=== PATIENT | female | born 1940 | race Caucasian/White ===

== ENCOUNTER → 2024-04-10 14:54 | Outpatient (REF) | payer MEDICARE, BC, SELFPAY | LOC: HWRAD 14:54 | PROVIDERS: ATTENDING PHYSICIAN Physician Assistant Medical | DX: R41.82 Altered mental status, unspecified (principal); R51.9 Headache, unspecified | CPT/HCPCS: 70450 ==

== ENCOUNTER 2024-04-29 17:37 | Observation (INO) | payer MEDICARE, BC, SELFPAY ==
[2024-04-29] VITALS (8 sets, daily range): BP systolic 88–136; BP diastolic 52–78; BMI 18.1
--- NOTE | 2024-04-29 12:42 | ED.GENMED ---
History of Present Illness
General
Chief Complaint: Back Pain
Source: patient
Exam Limitations: none
Time Seen by Provider: 04/29/24 12:09
History of Present Illness
History of Present Illness:
83-year-old female presents with family from home where she lives independently with her . Her has a history of Parkinson's and has been falling frequently. He fell on top of her 5 days ago. She was found to have right sided pelvic
fractures. She is fairly healthy and not anticoagulated. Before the fall did not need any assist devices to ambulate. She has been trying to use a walker however the pain today was too severe. She is unable to safely ambulate at home secondary
to her pelvic fractures and pain. No chest pain. No other complaints at this time
Past History
Past History
ED Past Medical History: None
ED Past Surgical History: Appendectomy
Social History
Personal:
Phy Exam
Physical Exam
Physical Exam:
General: Well-appearing female no acute respiratory distress
HEENT: Normocephalic atraumatic healing contusion noted to right side of jaw
Heart: Regular rate and rhythm no murmurs
Lungs: Clear no wheeze/abdomen is soft nontender nondistended no guarding or rebound
Musculoskeletal exam: No deformities noted to the lower extremities. There is pain with passive motion of the right hip.
Extremities: No cyanosis
Neurologic exam: Alert and oriented x 3 no facial asymmetry good strength to the upper and lower extremity
Course
Orders/Labs/Results
Orders:
Orders
04/29/24 12:33
CR Hip - RT w/wo Pel 2-3 Vw* Urgent
Comment:
Reason For Exam: fall, pain
Include a pelvis x-ray?: Yes
04/29/24 12:39
Complete Blood Count/With Diff Urgent
Comprehensive Metabolic Panel Urgent
04/29/24 13:24
PT Consult [Pt Eval And Treat] Urgent
Activity Level: Ambulate
04/29/24 13:41
Case Management Consult ONCE
Case Management Consult: Discharge Planning
Abnormal Lab Results
04/29/24
12:39
RBC 3.36 L 10^6/uL
(4.20-5.40)
Hgb 10.3 L g/dL
(12.0-16.0)
Hct 29.1 L %
(37.0-47.0)
Absolute Neuts (auto) 6.8 H 10^3/uL
(1.4-6.5)
Absolute Lymphs (auto) 0.9 L 10^3/uL
(1.2-3.4)
Absolute Monos (auto) 0.7 H 10^3/uL
(0.1-0.6)
Neutrophils % 79.1 H %
(42.2-75.2)
Lymphocytes % 10.9 L %
(20.5-51.1)
BUN 41 H mg/dl
(7-17)
Creatinine 1.1 H mg/dL
(0.6-1.0)
AST 43 H U/L
(14-36)
04/29/24 12:39
04/29/24 12:39
Vital Signs
Initial and Last Documented VS:
Initial Vital Signs
Temp Pulse Resp BP Pulse Ox
97.5 F 60 20 113/61 99
04/29/24 11:01 04/29/24 11:01 04/29/24 11:01 04/29/24 11:01 04/29/24 11:01
Last Documented Vital Signs
Temp Pulse Resp BP Pulse Ox
97.5 F 62 16 124/74 99
04/29/24 11:01 04/29/24 16:00 04/29/24 16:00 04/29/24 16:00 04/29/24 16:00
MDM/Problems Addressed
Differential Diagnosis Includes:
Patient with alleged right sided pelvic fracture secondary to fall her sustained 5 days ago. She has been unable to ambulate today secondary to the pain. She lives independently otherwise. Family was interested in potential placement.
X-rays pending of the right hip and pelvis labs pending. Case management notified
*Critical Care Note
Total Time (30-74mins, 75-104mins- exclusive of procedures): Not Applicable
Update Note
Update Note:
X-rays right hip demonstrate a periprosthetic fracture of the right proximal femur without obvious pelvic fracture. Discussed these findings with orthopedics who recommended partial weightbearing and likely nonoperative treatment. Patient
evaluated by physical therapy and case management. She is unsafe for discharge. She is unable to be placed from the emergency room. Will admit for further evaluation
ED Attending Note
-
Portions of this chart may have been created with voice recognition software.� Occasional wrong word or��sound alike� substitutions may have occurred due to the inherent limitations of voice recognition software.
Discharge Plan
Departure
Patient Disposition: Admit
Date of Disposition: 04/29/24
Time of Disposition: 16:19
Admit to: Med/Surg
Presentation/result/management discussed w/ accepting MD/DO: Hospitalist
Discharge Problem:
Periprosthetic fracture of hip
Referrals:
Colin Kumar PA-C [Family Provider] -
Interventions
Interventions:
*Risk Screen - Suicide Last Done: 04/29/24 11:54
*General Assessment Last Done: 04/29/24 11:54
*Neglect/Abuse Screening Last Done: 04/29/24 11:54
ED- Fall Risk Assessment Last Done: 04/29/24 11:54
ED-Musculoskeletal Assessment Last Done: 04/29/24 11:54
Discharge Date and Time
Print Language: SLOVENIAN
[2024-04-29 12:49] LABS: % Basophils 0.2 % (0-2); % Eosinophils 0.6 % (0-6); % Immature Granulocytes 0.5 % (0-0.5); % Lymphocytes 10.9 % (20.5-51.1); % Monocytes 8.7 % (1.7-9.3); % Neutrophils 79.1 % (42.2-75.2); Absolute Eosinophils 0.1 10^3/uL (0-0.7); Absolute Lymphocytes 0.9 10^3/uL (1.2-3.4); Absolute Monocytes 0.7 10^3/uL (0.1-0.6); Absolute Neutrophils 6.8 10^3/uL (1.4-6.5); Hematocrit 29.1 % (37.0-47.0); Hemoglobin 10.3 g/dL (12.0-16.0); Mean Corp Hgb Conc. 35.4 g/dL (33.0-37.0); Mean Corpuscular Hgb 30.7 pg (27.0-31.0); Mean Corpuscular Volume 86.6 fL (81.0-99.0); Mean Platelet Volume 9.8 fL (7.4-10.4); Nucleated Red Blood Cells % 0 %; Platelet Count 198 10^3/uL (130-400); Red Blood Cell Count 3.36 10^6/uL (4.20-5.40); Red Cell Dist. Width 12.2 % (11.5-14.5); White Blood Cell Count 8.6 10^3/uL (4.8-10.8)
[2024-04-29 13:14] LABS: ALT (SGPT) 22 U/L (0-35); AST (SGOT) 43 U/L (14-36); Albumin 3.7 g/dl (3.5-5.0); Alkaline Phosphatase 75 U/L (38-126); Blood Urea Nitrogen 41 mg/dl (7-17); Calcium 9.3 mg/dl (8.4-10.2); Carbon Dioxide 24 mmol/L (22-30); Chloride 103 mmol/L (98-107); Glucose 91 mg/dl (70-99); Potassium 4.6 mmol/L (3.5-5.1); Sodium 136 mmol/L (135-145); Total Bilirubin 1.3 mg/dl (0.2-1.3); Total Protein 6.4 g/dl (6.3-8.2); eGFR 50.17
--- NOTE | 2024-04-29 14:29 | CM ---
Addendum entered by Aida Melchor RN 04/29/24 18:35:
[facility] given.
Addendum entered by Aida Melchor RN 04/29/24 15:32:
CM spoke with son Jonathan. He is agreeable to placement. CM discussed options. Referrals sent to [facility]. CM is pending PT evaluations.
Jonathan stated that he plans to transition patient from her apartment to [facility] assisted living on May 14.
PLAN: SNF
Original Note:
CM was consulted for placement. CM met with patient and she stated that she would be agreeable to placement. Patient could not offer SNF choices and requested that I speak to her son Jonathan
--- NOTE | 2024-04-29 15:36 | CON.ORTHO ---
Consultation - Orthopedics
History
HPI: 83-year-old female history of bilateral total hip arthroplasty presented to the emergency department complaints of right hip pain. She was subsequently mated to the hospital service after being diagnosed with a right hip periprosthetic femur
fracture. Orthopedics was consulted. Patient reports that she had total hip arthroplasty surgery performed years ago in [place]. She reports that 5 days ago her fell on her. He has Parkinson's and she helps to care for him at
home. Since that time she has been continuing to ambulate but with pain. She does report that she been using a walker for ambulatory assistance at baseline over the last several months due to ambulatory dysfunction. Today patient reports pain
well localized to the right groin. Pain is made worse with rotation of the hip and with attempted ambulation.
Allergies / Home Medications
Past medical history: None reported
Past surgical history: Hip arthroplasty, appendectomy
Social history: Lives at home with who has Parkinson's,
Family history: Not pertinent
Allergy/AdvReac Type Severity Reaction Status Date / Time
egg yolk Allergy Unknown Verified 04/29/24 11:01
Vital Signs / Lab Results
Temp Pulse Resp BP Pulse Ox
97.5 F 60 16 132/74 99
04/29/24 11:01 04/29/24 11:01 04/29/24 14:00 04/29/24 13:22 04/29/24 11:01
04/29/24 12:39
04/29/24 12:39
10 point review systems reviewed and negative unless otherwise stated
General: Pleasant, no acute distress, mildly confused
Musculoskeletal right lower extremity
Well-healed surgical incisions
Mild lateral based hip pain with passive internal ex rotation of hip
No pain with passive range of motion of knee
No palpable knee effusion
Mild tenderness palpation over groin
Mild to moderate tenderness palpation over lateral trochanteric flare
Positive EHL, FHL, ankle dorsiflexion, plantarflexion
Sensation grossly tact to light touch in all dispositions distally
No other areas of bony tenderness palpation crepitation of long bones or joints of tissue examination
Diagnostic studies
X-rays right hip independently viewed by myself. There is evidence on my read of a nondisplaced periprosthetic greater trochanter fracture. There is no gross subsidence of the implant however there is no previous radiographs to confirm previous
position
Assessment / Plan
83-year-old female history of right total hip arthroplasty status post fall with [place] A G periprosthetic right femur fracture. I do long detailed discussion with the patient regarding diagnosis and treatment options. Typically disease treated
nonoperatively there is some mention of potential fracture propagation more distally although I do not really see this on my read. Would recommend protected weightbearing about 50% partial weightbearing with the use of a walker. Would like to see
patient back in 2 weeks for repeat evaluation with repeat radiographs to assess for any interval displacement or interval subsidence. I did explain to her that if the fracture is more substantial and there is gross subsidence of the implant or if
there is any interval subsidence, she would need revision hip surgery and would refer her to trained hip arthroplasty specialist. Hopefully this is not the case.
Protected weightbearing, 50% partial weightbearing with walker right lower extremity
PT OT
Pain control
Medical management per primary team
I recommend DVT prophylaxis for 28 days. 81 mg aspirin twice daily should suffice.
Planned outpatient follow-up myself outpatient in 2 to 3 weeks repeat radiographs.
--- NOTE | 2024-04-29 16:32 | PHANOTE ---
Med Rec Note:
When interviewing pt about medications, she states she can't remember them, prompted pt with medications filled recently per Dr Levin. Oxybutynin ER 5mg Daily (02/03/24 for 90 days), Lansoprazole 30mg Daily (02/25/24 for 90 days), Cyclobenzaprine
5mg HSPRN (04/26/24 for 10 days), Methylprednisolone 4mg Dospak (04/26/24 for 6 days). Pt states she wasn't taking the Flexeril or MedrolPak, but when asked about the last time she took her medications, pt stated that she is not a pill taker.
--- NOTE | 2024-04-29 16:47 | HPS.HSE ---
Family Physician
-
Family Physician: ANGELES BRITTON PA-C
Chief Complaint
-
right hip pain
History of Present Illness
83-year-old female past medical history of bilateral hip arthroplasty, presenting with right hip pain her has a history of Parkinson's and has been falling frequently. He fell on top of her 5 days ago. Before the fall she did not need any
assistance tabulate. She has been trying to use walker however pain was too severe. She was unable to ambulate at home. She denies any pain currently unless she tries to walk. Denies chest pain.
Patient denies smoking or alcohol use.
Medical History
Past Medical History
Past Medical History: Reports Other (bilateral hip arthroplasty,)
Past Surgical History: Reports Orthopedic
Social History
Tobacco: Non-smoker
Alcohol: None
Drug: None
Family History
Family History: Not pertinent
Allergies / Home Medications
Allergies reflects when Allergies were last updated in [facility].
Home Medications with original date entered in [employer]
Allergy/Medication List:
Allergies
Allergy/AdvReac Type Severity Reaction Status Date / Time
egg yolk Allergy Unknown Verified 04/29/24 11:01
Home Medications
No Meds [No Current Medications] 04/29/24
Review of Systems
-
History Source: Patient
A 12 point ROS was completed and negative except as noted: Yes
Constitutional: Reports No Symptoms
EENT: Reports No Symptoms
Respiratory: Reports No Symptoms
Cardiac: Reports No Symptoms
Abdomen/GI: Reports No Symptoms
: Reports No Symptoms
Musculoskeletal: Reports See HPI
Skin: Reports No Symptoms
Neurological: Reports No Symptoms
Endocrine: Reports No Symptoms
Hematologic/Lymphatic: Reports No Symptoms
Psych: Reports No Symptoms
Physical Exam
Vital Signs
Vital Signs
Temp Pulse Resp BP Pulse Ox
97.5 F 62 16 124/74 99
04/29/24 11:01 04/29/24 16:00 04/29/24 16:00 04/29/24 16:00 04/29/24 16:00
Physical Exam
General: Well Developed, Well Nourished and No Apparent Distress
HEENT: NormoCephalic, Moist mucous membranes and Atraumatic
Respiratory: Clear
Cardiac: S1/S2 and Regular Rhythm; No Murmur or Rub
GI: Soft, Non Tender, Non Distended and Normal Bowel Sounds; No Organomegaly
Rectal: Deferred by Provider
Musculoskeletal: No Clubbing, No Cyanosis and No Edema
Skin: No Rash
Neuro: Nonfocal/grossly intact
Laboratory Results
-
04/29/24 12:39
04/29/24 12:39
Laboratory Results
Total Bilirubin 1.3 mg/dl (0.2-1.3) 04/29/24 12:39
AST 43 U/L (14-36) H 04/29/24 12:39
ALT 22 U/L (0-35) 04/29/24 12:39
Alkaline Phosphatase 75 U/L (38-126) 04/29/24 12:39
Data Reviewed
-
Lab Data: Labs Reviewed by me
Old Records: Reviewed
Impression/Plan
-
IMPRESSION:
PLAN:
# Nondisplaced periprosthetic fracture of right proximal femur
# History of bilateral hip arthroplasty
-Ortho consulted and recommended protected partial weightbearing with walker as well as aspirin for DVT prophylaxis for 28 days and outpatient follow-up with orthopedics
-PT/OT
-Tylenol, ibuprofen, tramadol as needed for
-Seen by PT and case management cannot be placed today
Presumably chronic anemia
-Hemoglobin 10.3
Full code
DVT prophylaxis-aspirin
Regular diet
--- NOTE | 2024-04-29 21:18 | PTCARENOTE ---
Pt arrived onto floor @2117. Pt AAOx3 and able to walk into room w/ assistance. Pt w/ no complaints of SOB at this time. Pt oriented to room and call red; will continue to monitor.
[2024-04-29] MEDS: TYLENOL 650 MG PO (21:20)
[2024-04-29] MEDS: ULTRAM 50 MG PO (23:45)
[2024-04-30 07:09] LABS: % Basophils 0.6 % (0-2); % Eosinophils 2.5 % (0-6); % Immature Granulocytes 0.4 % (0-0.5); % Monocytes 11.3 % (1.7-9.3); % Neutrophils 66.2 % (42.2-75.2); Absolute Eosinophils 0.2 10^3/uL (0-0.7); Absolute Lymphocytes 1.3 10^3/uL (1.2-3.4); Absolute Monocytes 0.8 10^3/uL (0.1-0.6); Absolute Neutrophils 4.6 10^3/uL (1.4-6.5); Hematocrit 29.1 % (37.0-47.0); Hemoglobin 10.2 g/dL (12.0-16.0); Mean Corp Hgb Conc. 35.1 g/dL (33.0-37.0); Mean Corpuscular Hgb 31.5 pg (27.0-31.0); Mean Corpuscular Volume 89.8 fL (81.0-99.0); Mean Platelet Volume 10.4 fL (7.4-10.4); Nucleated Red Blood Cells % 0 %; Platelet Count 203 10^3/uL (130-400); Red Blood Cell Count 3.24 10^6/uL (4.20-5.40); White Blood Cell Count 6.9 10^3/uL (4.8-10.8)
[2024-04-30 07:42] LABS: ALT (SGPT) 20 U/L (0-35); AST (SGOT) 32 U/L (14-36); Albumin 3.4 g/dl (3.5-5.0); Alkaline Phosphatase 69 U/L (38-126); Blood Urea Nitrogen 39 mg/dl (7-17); Calcium 8.7 mg/dl (8.4-10.2); Carbon Dioxide 23 mmol/L (22-30); Chloride 103 mmol/L (98-107); Estimated Creatinine Clearance 35 ml/min; Glucose 86 mg/dl (70-99); Potassium 4.2 mmol/L (3.5-5.1); Sodium 135 mmol/L (135-145); Total Bilirubin 0.9 mg/dl (0.2-1.3); Total Protein 5.9 g/dl (6.3-8.2); eGFR 56.25
[2024-04-30] MEDS: LOW STRENGTH ASPIRIN 81 MG PO (08:05)
[2024-04-30] MEDS: ULTRAM 50 MG PO ×2 (08:07→15:51)
[2024-04-30 08:14] VITALS: BP 118/58
--- NOTE | 2024-04-30 08:41 | W.PN.HOSP.TC ---
Addendum entered and electronically signed by Nba Sheppard MD 04/30/24 09:40:
I saw and evaluated the patient. I reviewed the resident�s note and agree with findings and plan as documented in the resident�s note.
Pt without acute complaints.
Gen: NAD, Awake and alert
Eyes: EOMI, PERRLA, no scleral icterus.
ENMT: R chin ecchymosis
Neck: supple.
CV: RRR, +S1/S2, no m/r/g.
Resp: CTAB, no rales, wheezes, or rhonchi.
Abd: +BS, soft, NT, ND
Skin: No rashes.
Neuro: CN 2-12 intact, non-focal.
Psych: Normal mood and affect.
CT brain: There are no acute intracranial abnormalities. There is moderate diffuse cortical atrophy with moderate nonspecific white matter changes as described above.
R hip Xray: There is cortical disruption at the lateral aspect of the junction of the greater trochanter and the proximal femoral metaphysis suggesting nondisplaced acute fracture extending into the femoral component of the prosthesis.
Right hip periprosthetic fracture:
-As per Ortho, observe for the next 2-3 weeks, 50% partial weightbearing with walker to the right lower extremity, ASA 81mg BID x 28 days
-No indication for further hospitalization at this time and the patient is medically cleared for discharge, case management aware
Original Note:
Today's Communication/Plan
-
Plan discharge after orthopedic and PT consult
Assessment / Plan
Assessment / Plan
IMPRESSION
An 83-year-old female with past medical history of bilateral shoulder and bilateral hip replacement, presented with a history of fall resulting in right sided acute nondisplaced periprosthetic hip fracture. She complains of stiffness in her hips
more on the left as compared to right. She says her pain is well-controlled, needs some help to get up but is able to ambulate with the help of walker.
ASSESSMENT AND PLAN
Right-sided periprosthetic hip fracture
Patient presented with a fall, resulting in difficulty in ambulating
CT head shows no intracranial bleed
X-ray of right hip showed acute periprosthetic nondisplaced hip fracture
Ortho consult appreciated--- would like to observe for next 2 weeks before looking into surgery options
PT evaluation
Needs physical therapy to help with mobility
OTHER
History of bilateral hip and shoulder replacement
Currently taking no medications at home
Full code
DVT prophylaxis-aspirin
Regular diet
Anticipated Discharge: Within 24 hours
Subjective/Interval History
-
Date of Service: April 30, 2024
An 83-year-old female, sitting comfortably in her bed, conversant, says pain is well-controlled, able to move her legs, complains of some stiffness in her left hip.
Objective Data
-
Labs:
Laboratory Results
04/30/24
05:58
WBC 6.9
Hgb 10.2 L
Hct 29.1 L
Plt Count 203
Sodium 135
Potassium 4.2
Chloride 103
Carbon Dioxide 23
BUN 39 H
Creatinine 1.0
Glucose 86
Calcium 8.7
Total Bilirubin 0.9
AST 32
ALT 20
Alkaline Phosphatase 69
Vital Signs:
Vital Signs
Temp Pulse Resp BP Pulse Ox
97.3 F 52 16 118/58 100
04/30/24 08:14 04/30/24 08:14 04/30/24 08:14 04/30/24 08:14 04/30/24 08:14
I&O
04/29/24 04/30/24 05/01/24
06:59 06:59 06:59
Intake Total 240 / 240
Balance 240 / 240
Review of Systems
-
All other systems: Reviewed and negative
Physical Exam
-
General: Well Developed, Well Nourished, No Apparent Distress, Comfortable and Conversant
HEENT: Anicteric and PERRLA
Respiratory: Clear to Auscultation
Cardiac: Regular Rhythm and S1/S2
GI: Soft, Nontender, Nondistended and Normal Bowel Sounds
Genito-urinary: No Costovertebral Tender
Musculoskeletal: No Clubbing, No Cyanosis and No Edema
Skin: Warm and Dry
Neuro: Awake, Alert and Oriented
Hematologic / Lymphatic: No Lymphadenopathy
Psych: Calm
--- NOTE | 2024-04-30 08:57 | W.DCSUMMARY ---
Addendum entered and electronically signed by Nba Sheppard MD 04/30/24 11:20:
Read, reviewed, and agree. See same day progress note for additional details.
Original Note:
Discharge Summary
Discharge Data
Date of Admission: 04/29/24
Date of Discharge: 04/30/24
-
Pending Results: No
Hospital Course
Discharging Physician : Dr. Nba Sheppard, Dr. Tylor Whitmore
Disposition : snf/[facility] facility
Primary care physician : Colin Kumar PA-C
Principal Discharge diagnosis : right periprosthetic fracture
Chronic Discharge diagnosis : History of bilateral hip and bilateral shoulder replacement
Hospital Course :
Patient is an 83-year-old female who presented with a history of fall, CT scan of head showed no evidence of bleed, hip x-ray showed right sided acute displaced periprosthetic hip fracture. Ortho was consulted who suggested to observe for the next
2 to 3 weeks, with 50% partial weightbearing with walker to the right lower extremity. They also advised anticoagulation with aspirin 81 mg twice a day for 28 days.
Patient discharged to a intermediate facility to assist with ambulatory function.
Important imaging findings :
Xray Hip - RT
FINDINGS:
3 radiographs of the pelvis and right hip were obtained.
There are old healed fractures of both ischial tuberosities and both superior pubic rami.
There are bilateral hip replacements
There is cortical disruption at the lateral aspect of the junction of the greater trochanter and the proximal femoral metaphysis suggesting nondisplaced acute fracture extending into the femoral component of the prosthesis.
Correlation with any prior hip x-rays the patient may have had be useful.
IMPRESSION:
There is cortical disruption at the lateral aspect of the junction of the greater trochanter and the proximal femoral metaphysis suggesting nondisplaced acute fracture extending into the femoral component of the prosthesis.
Discharge Plan
-
Patient Disposition: [facility]/SNF
Discharge Diagnosis/Procedures: right periprosthetic fracture
Condition: Good
Diet: Regular
Activity: Other activity
Additional Activity: 50% partial weightbearing with walker to the right lower extremity
Driving Restrictions: As prior to admission
Bathing Restrictions: OK to Shower
Referrals:
Colin Kumar PA-C [Family Provider] - in less than 1 week
Prescriptions:
New
acetaminophen 325 mg Tablet
650 mg PO Q4HPRN PRN (Reason: mild pain/WHITE/temp> 100.4F) Qty: 0 0RF
tramadol 50 mg Tablet
50 mg PO Q6HPRN PRN (Reason: moderate pain) Qty: 6 0RF
aspirin 81 mg Tablet,Chewable
81 mg PO BID Qty: 0 0RF
Continued
lansoprazole 30 mg Capsule,Delayed Release(Dr/Ec)
30 mg PO DAILY
Discontinued
cyclobenzaprine 5 mg Tablet
5 mg PO HS PRN (Reason: pain)
cephalexin 500 mg Capsule
500 mg PO BID
oxybutynin chloride 5 mg Tablet
5 mg PO DAILY
Discharge Orders:
Discharge Patient (As Directed); Ordered 04/30/24
Ordered By: Nba Sheppard
Discharge Date and Time
Print Language: KOREAN
--- NOTE | 2024-04-30 11:45 | CM ---
Patient with Right Hip Fx. PT Eval; PWB R LE 50%, no active hip abduction, recommend skilled rehab. OT Eval pending.
Spoke with patient, and son Jonathan (cell [phone]); informed them that currently no SNF has accepted. Son made aware that patient is currently Medicare Observation status which has no benefit for skilled rehab. Son wishes to wait until
tomorrow to see if patient's status will change after reviewed by UR team.
SNF referrals reviewed; no accepting SNFs at this time.
Phone call to [facility]; left message re; referral.
Phone call to [facility]; left message re; referral.
Plan follow up SNF referrals tomorrow.
[2024-04-30 15:00] VITALS: BP 106/57
[2024-04-30 15:56] VITALS: BP 106/57; PULSE 52; O2SAT 99
[2024-04-30] MEDS: TORADOL 10 MG IV (18:10)
[2024-05-01] MEDS: TYLENOL 650 MG PO ×2 (02:44→08:00)
[2024-05-01] MEDS: ULTRAM 50 MG PO (04:28)
[2024-05-01 07:44] VITALS: BP 141/59
[2024-05-01] MEDS: LOW STRENGTH ASPIRIN 81 MG PO (08:00)
--- NOTE | 2024-05-01 10:48 | CM ---
Chart reviewed and physical therapy are recommending skilled placement, patient remains OBS and does not meet criteria for skilled placement. Plan will be to review patient's secondary insurance [employer] to see if they is any skilled
benefit. Call placed to patient's son Jonathan offered private pay and he declined. Patient's son is requesting a call from physician.
Plan; To follow with patient and assist with discharge planning.
[2024-05-01 11:07] VITALS: BP 112/67
[2024-05-01 11:26] VITALS: BP 112/67
--- NOTE | 2024-05-01 12:25 | W.PN.HOSP.TC ---
Today's Communication/Plan
-
dc home
Assessment / Plan
Assessment / Plan
Imaging
Physical Exam
NAD, resting comfortably in bed
Scleral anicteric
Moist mucous membranes
No JVD
CTA bilateral
Normal S1-S2 no murmurs
Soft nontender nondistended bowel sounds active
No peripheral pitting edema
Moves extremities spontaneously
AAOx3
Assessment and Plan
Right-sided periprosthetic hip fracture
-Reports to me this occurred while taking care of of her . States that her lost her balance due to left-sided leg weakness and fell on top of her therefore sustaining this fracture
--She is his primary caregiver
-Evaluated by orthopedics, recommended to observe over the next 2 weeks before looking into surgical options. 50% partial weightbearing with walker to the right lower extremity. ASA 81mg BID [id number]
-PT rec SNF, unfortunately per physician advisor cannot upgrade to inpatient therefore will be kept as observation. As she is not inpatient she does not qualify for SNF. This has been verbally notified to her by case management and will be
discharged home
--Will Plan to DC home with VN/PT/OT and Home care
Anticipated Discharge: Today
Subjective/Interval History
-
Date of Service: May 01, 2024
Seen and examined. No new complaints. No acute overnight events.
Objective Data
-
Vital Signs:
Vital Signs
Temp Pulse Resp BP Pulse Ox
97.7 F 55 19 141/59 100
05/01/24 07:44 05/01/24 07:44 05/01/24 07:44 05/01/24 07:44 05/01/24 07:44
I&O
04/30/24 05/01/24 05/02/24
06:59 06:59 06:59
Intake Total 240 / 240 1650 / 1650
Balance 240 / 240 1650 / 1650
--- NOTE | 2024-05-01 12:44 | W.DCSUMMARY ---
Discharge Summary
Discharge Data
Date of Admission: 04/29/24
Date of Discharge: 05/01/24
-
Pending Results: No
Hospital Course
Presented with right hip after fell on her 5 days ago. This led her to to be unable to ambulate at home and hence why she presented to the hospital. X-ray demonstrating nondisplaced periprosthetic fracture of the right proximal femur.
Orthopedics consulted recommended protracted partial weightbearing with walker into reconvene in the next 2 weeks to see if there are surgical options. DVT prophylaxis recommend aspirin 81 mg twice a day for 28 days.
Discharge Plan
-
Patient Disposition: Jail/SNF
Discharge Diagnosis/Procedures: right periprosthetic fracture
Condition: Good
Diet: Regular
Activity: Other activity
Additional Activity: 50% partial weightbearing with walker to the right lower extremity
Driving Restrictions: As prior to admission
Bathing Restrictions: OK to Shower
Referrals:
Tru Williamson MD [Active] - in one to two weeks
Colin Kumar PA-C [Family Provider] - in less than 1 week
Prescriptions:
New
acetaminophen 325 mg Tablet
650 mg PO Q4HPRN PRN (Reason: mild pain/WHITE/temp> 100.4F) Qty: 0 0RF
tramadol 50 mg Tablet
50 mg PO Q6HPRN PRN (Reason: moderate pain) Qty: 6 0RF
aspirin 81 mg Tablet,Chewable
81 mg PO BID Qty: 0 0RF
Continued
lansoprazole 30 mg Capsule,Delayed Release(Dr/Ec)
30 mg PO DAILY
Discontinued
cyclobenzaprine 5 mg Tablet
5 mg PO HS PRN (Reason: pain)
cephalexin 500 mg Capsule
500 mg PO BID
oxybutynin chloride 5 mg Tablet
5 mg PO DAILY
Discharge Orders:
Discharge Patient (As Directed); Ordered 05/01/24
Ordered By: Nba Sheppard
Discharge Date and Time
Print Language: FRENCH
[2024-05-01 15:07] VITALS: BP 107/64
[2024-05-01] MEDS: PERCOCET 5/325 1 TABLET PO (15:55)
--- NOTE | 2024-05-01 16:57 | CM ---
With jessica Jonathan's permission, clinicals faxed to Joellen at [facility] [phone].
[2024-05-01 23:30] VITALS: BP 111/64
[2024-05-02 07:58] VITALS: BP 104/60
[2024-05-02] MEDS: LOW STRENGTH ASPIRIN 81 MG PO (08:34)
[2024-05-02] MEDS: MOTRIN 400 MG PO (08:34)
--- NOTE | 2024-05-02 10:50 | CM ---
Addendum entered by Etta Sanches 05/02/24 16:27:
CM received call from son, Jonathan, reports his brother, Fei, will arrive at the Hospital tomorrow morning to bring patient home, will not be private paying for short term rehab, plan to return home with transition to [facility] Wednesday. TT to
Hospitalist with update.
Addendum entered by Etta Sanches 05/02/24 15:28:
CM spoke with patients son, discussed cost of private pay for [email or web address] for patient and patient spouse. Son would like patient to discharge home and transition to [facility] on Wednesday. CM inquiring if patient will return home alone. Son reports
family lives nearby and will check on patient daily. Son feels as though patient will do better at home as patient will not be caring for spouse.
Plan; home with family support likely, transition to [facility] Wednesday.
Original Note:
CM faxed financials to [email or web address] for short term rehab, , under review. CM will update family once determined if [email or web address] is able to offer patient and patient spouse a bed. Plan transition to [facility] after short term rehab, this
Wednesday. CM will continue to follow for all discharge planning needs.
Plan; financials under review at [email or web address], awaiting acceptance.
--- NOTE | 2024-05-02 14:03 | W.PN.HOSP.TC ---
Today's Communication/Plan
-
Assessment / Plan
Assessment / Plan
Imaging
Physical Exam
NAD, resting comfortably in bed
Scleral anicteric
Moist mucous membranes
No JVD
CTA bilateral
Normal S1-S2 no murmurs
Soft nontender nondistended bowel sounds active
No peripheral pitting edema
Moves extremities spontaneously
AAOx3
Assessment and Plan
Right-sided periprosthetic hip fracture
-Reports to me this occurred while taking care of of her . States that her lost her balance due to left-sided leg weakness and fell on top of her therefore sustaining this fracture
--She is his primary caregiver
-Evaluated by orthopedics, recommended to observe over the next 2 weeks before looking into surgical options. 50% partial weightbearing with walker to the right lower extremity. ASA 81mg BID [id number]
-PT rec SNF, unfortunately per physician advisor cannot upgrade to inpatient therefore will be kept as observation. As she is not inpatient she does not qualify for SNF. This has been verbally notified to her by case management and will be
discharged home
--Spoke with her son Jonathan, Plan for living assisted facility on Wednesday at
Mild cognitive impairment with MoCA of 21
-Outpatient neuropsych follow up
It is in my humble opinion that I do not believe it would be safe for her to be dischagred home by herself as her is currently hospitalized.
I agree that she should be placed ot at least go to an assisted living facility.
Additionally, she takes care of her for which I do not believe she is able to do successfully
Anticipated Discharge: > 48 hours
Subjective/Interval History
-
Date of Service: May 02, 2024
seen and exained
no new comaplints
no acute overnighgt evengts
Objective Data
-
Vital Signs:
Vital Signs
Temp Pulse Resp BP Pulse Ox
97.6 F 80 18 104/60 98
05/02/24 07:58 05/02/24 07:58 05/02/24 07:58 05/02/24 07:58 05/02/24 07:58
I&O
05/01/24 05/02/24 05/03/24
06:59 06:59 06:59
Intake Total 1650 / 1650 420 / 420
Balance 1650 / 1650 420 / 420
[2024-05-02 15:48] VITALS: BP 119/58
[2024-05-02] MEDS: ULTRAM 50 MG PO (20:05)
[2024-05-02 23:22] VITALS: BP 105/61
[2024-05-03] MEDS: TYLENOL 650 MG PO (02:50)
[2024-05-03 07:35] VITALS: BP 100/53
[2024-05-03] MEDS: LOW STRENGTH ASPIRIN 81 MG PO (09:34)
--- NOTE | 2024-05-03 10:28 | CM ---
CM reviewed chart, patient for discharge today. CM spoke with patients son, Jonathan, agreeable to referral to [facility], TT to Hospitalist for [facility] order. Referral placed in [facility]. Patients son will provide transportation home. CM will continue to
follow for all discharge planning needs.
Plan; home with [facility] and family support.
--- NOTE | 2024-05-03 16:50 | W.PN.HOSP.TC ---
Today's Communication/Plan
-
More than 30 minutes spent in discharge including
Final examination of the patient
Summarizing hospital stay
Instructions for continuing care to all relevant caregivers
Preparation of discharge records, prescriptions, and referral forms
Total time spent (in minutes): 32mins
Assessment / Plan
Assessment / Plan
Imaging
Physical Exam
NAD, resting comfortably in bed
Scleral anicteric
Moist mucous membranes
No JVD
CTA bilateral
Normal S1-S2 no murmurs
Soft nontender nondistended bowel sounds active
No peripheral pitting edema
Moves extremities spontaneously
AAOx3
Assessment and Plan
Right-sided periprosthetic hip fracture
-Reports to me this occurred while taking care of of her . States that her lost her balance due to left-sided leg weakness and fell on top of her therefore sustaining this fracture
--She is his primary caregiver
-Evaluated by orthopedics, recommended to observe over the next 2 weeks before looking into surgical options. 50% partial weightbearing with walker to the right lower extremity. ASA 81mg BID [id number]
-PT rec SNF, unfortunately per physician advisor cannot upgrade to inpatient therefore will be kept as observation. As she is not inpatient she does not qualify for SNF. This has been verbally notified to her by case management and will be
discharged home
--Spoke with her son Jonathan, Plan for living assisted facility on Wednesday at
Mild cognitive impairment with MoCA of 21
-Outpatient neuropsych follow up
DC home with VN.
Plan to take to assisted living facility on Wednesday per [facility]
Anticipated Discharge: Today
Subjective/Interval History
-
Date of Service: May 03, 2024
seen and examined. ready to go home. son at bedside.
Objective Data
-
Vital Signs:
Vital Signs
Temp Pulse Resp BP Pulse Ox
97.6 F 80 16 100/53 95
05/03/24 07:35 05/03/24 07:35 05/03/24 07:35 05/03/24 07:35 05/03/24 08:24
I&O
05/02/24 05/03/24 05/04/24
06:59 06:59 06:59
Intake Total 420 / 420 600 / 600
Output Total 0 / 0
Balance 420 / 420 600 / 600
--- NOTE | 2024-05-03 16:56 | W.DCSUMMARY ---
Discharge Summary
Discharge Data
Date of Admission: 04/29/24
Date of Discharge: 05/03/24
-
Pending Results: No
Hospital Course
83-year-old female past medical history of bilateral hip arthroplasty presented with right hip pain after fell on her 5 days prior to presentation. This has led to pain with ambulation. Hip xray as below. Was evaluated by orthopedics and
recommended outpatient follow up in the next 2weeks. Orthopedics did recommend Protected weightbearing, 50% partial weightbearing with walker right lower extremity.
Additionally, there was a concern for cognition, therefore, MoCA was assessed, found to have mild cognitive impairment with a score of 21. Recommended outpatient neuropsychiatric following and testing.
Hip Xray
IMPRESSION:
There is cortical disruption at the lateral aspect of the junction of the greater trochanter and the proximal femoral metaphysis suggesting nondisplaced acute fracture extending into the femoral component of the prosthesis.
Discharge Plan
-
Patient Disposition: Home (Routine Discharge)
Discharge Diagnosis/Procedures: right periprosthetic fracture
Condition: Good
Diet: Regular
Activity: Other activity
Additional Activity: Protected weightbearing, 50% partial weightbearing with walker right lower extremity
Driving Restrictions: As prior to admission
Bathing Restrictions: OK to Shower
Other Services: VN
Activity Restrictions/Additional Instructions:
Presented with right hip pain after fell on her 5 days prior to presentation. This has led to pain with ambulation. Hip xray as below. Was evaluated by orthopedics and recommended outpatient follow up in the next 2weeks. Orthopedics did
recommend Protected weightbearing, 50% partial weightbearing with walker right lower extremity.
Additionally, there was a concern for cognition, therefore, MoCA was assessed, found to have mild cognitive impairment with a score of 21. Recommended outpatient neuropsychiatric following and testing.
Hip Xray
IMPRESSION:
There is cortical disruption at the lateral aspect of the junction of the greater trochanter and the proximal femoral metaphysis suggesting nondisplaced acute fracture extending into the femoral component of the prosthesis.
Referrals:
Colin Kumar PA-C [Family Provider] - in less than 1 week
Matt Biggs MD [Active] - in one to two weeks
Additional Discharge Medication Instructions: Aspirin 81mg twice a day for 28days
Repeat radiographs of hip in 2-3weeks with outpatient orthopedic follow up
Prescriptions:
New
acetaminophen 325 mg Tablet
650 mg PO Q4HPRN PRN (Reason: mild pain/WHITE/temp> 100.4F) Qty: 0 0RF
aspirin 81 mg Tablet,Chewable
81 mg PO BID Qty: 0 0RF
Continued
lansoprazole 30 mg Capsule,Delayed Release(Dr/Ec)
30 mg PO DAILY
Discontinued
cyclobenzaprine 5 mg Tablet
5 mg PO HS PRN (Reason: pain)
cephalexin 500 mg Capsule
500 mg PO BID
oxybutynin chloride 5 mg Tablet
5 mg PO DAILY
Discharge Orders:
Discharge Patient (As Directed); Ordered 05/03/24
Ordered By: Bro Zendejas
Discharge Date and Time
Discharge Date/Time: 05/03/24 10:28
Print Language: SAMOAN
== END 2024-05-03 10:28 | disposition home health service (06) ==
LOC: 4 WEST ACU 17:37
PROVIDERS: Physician Assistant; ADMITTING PHYSICIAN Hospitalist; ATTENDING PHYSICIAN Hospitalist; EMERGENCY PHYSICIAN Emergency Medicine; FAMILY PHYSICIAN Physician Assistant Medical; OTHER PHYSICIAN Orthopaedic Surgery
DX: S72.114A Nondisplaced fracture of greater trochanter of right femur, initial encounter for closed fracture (principal); M97.01XA Periprosthetic fracture around internal prosthetic right hip joint, initial encounter; W03.XXXA Other fall on same level due to collision with another person, initial encounter; Y93.F9 Activity, other caregiving; Y92.009 Unspecified place in unspecified non-institutional (private) residence as the place of occurrence of the external cause; G31.84 Mild cognitive impairment of uncertain or unknown etiology; M25.551 Pain in right hip; D64.9 Anemia, unspecified; M25.552 Pain in left hip; M54.9 Dorsalgia, unspecified; R53.1 Weakness; R26.2 Difficulty in walking, not elsewhere classified; Z96.643 Presence of artificial hip joint, bilateral; Z63.6 Dependent relative needing care at home; Z91.012 Allergy to eggs; Z96.611 Presence of right artificial shoulder joint; Z96.612 Presence of left artificial shoulder joint
CPT/HCPCS: 73502; 80053; 85025; 97116; 97129; 97166; 97530; 99284; G0378

== ENCOUNTER 2024-05-27 17:21 | Emergency (ER) | payer MEDICARE, BC, SELFPAY ==
[2024-05-27 17:26] VITALS: BP 115/76
[2024-05-27 17:50] LABS: % Basophils 0.6 % (0-2); % Eosinophils 0.9 % (0-6); % Immature Granulocytes 0.2 % (0-0.5); % Lymphocytes 16.8 % (20.5-51.1); % Monocytes 8.6 % (1.7-9.3); % Neutrophils 72.9 % (42.2-75.2); Absolute Basophils 0.1 10^3/uL (0-0.2); Absolute Eosinophils 0.1 10^3/uL (0-0.7); Absolute Lymphocytes 1.4 10^3/uL (1.2-3.4); Absolute Monocytes 0.7 10^3/uL (0.1-0.6); Hematocrit 39.3 % (37.0-47.0); Hemoglobin 13.3 g/dL (12.0-16.0); Mean Corp Hgb Conc. 33.8 g/dL (33.0-37.0); Mean Corpuscular Hgb 30.9 pg (27.0-31.0); Mean Corpuscular Volume 91.4 fL (81.0-99.0); Mean Platelet Volume 9.4 fL (7.4-10.4); Nucleated Red Blood Cells % 0 %; Platelet Count 380 10^3/uL (130-400); Red Cell Dist. Width 12.7 % (11.5-14.5); White Blood Cell Count 8.2 10^3/uL (4.8-10.8)
[2024-05-27 18:07] LABS: ALT (SGPT) < 10 U/L (0-35); AST (SGOT) 23 U/L (14-36); Albumin 4.2 g/dl (3.5-5.0); Alkaline Phosphatase 257 U/L (38-126); Blood Urea Nitrogen 30 mg/dl (7-17); Calcium 10.4 mg/dl (8.4-10.2); Carbon Dioxide 23 mmol/L (22-30); Chloride 97 mmol/L (98-107); Glucose 77 mg/dl (70-99); Lipase 344 U/L (23-300); Potassium 5.1 mmol/L (3.5-5.1); Sodium 136 mmol/L (135-145); Total Bilirubin 0.5 mg/dl (0.2-1.3); Total Protein 7.1 g/dl (6.3-8.2); eGFR > 60.00
[2024-05-27 18:16] VITALS: BP 137/81
--- NOTE | 2024-05-27 18:51 | ED.GENMED ---
History of Present Illness
General
Chief Complaint: Abdominal Pain
Source: patient and shelter
Exam Limitations: dementia
Time Seen by Provider: 05/27/24 18:08
History of Present Illness
History of Present Illness:
This is a 83 year old female that is brought in by ambulance from . Called and spoke with the nurse there. States that the patient has been c/o upper abd pain for the past few days, that she is not eating and that she had diarrhea.
Patient Denies any fever, chills, chest pain, SOB, nausea, vomiting abd pain, headache, dizziness, urinary burning.
Past History
Past History
ED Past Medical History: Other (Overactive bladder )
ED Past Surgical History: Appendectomy and Orthopedic (Bilateral hip replacement)
Social History
Tobacco: Former smoker
Alcohol: Occasional
Personal:
Living: shelter ()
Review of Systems
Review of Systems
Unable to obtain full review of systems at this time due to: dementia
Other source history: shelter
All Other Systems: ROS reviewed and negative except as documented in HPI and ROS
Constitutional: Denies fever or chills
EENT: Reports no symptoms
Respiratory: Reports no symptoms; Denies cough or trouble breathing
Cardiac: Reports no symptoms; Denies chest pain
ABD/GI: Reports abdominal pain, diarrhea and other (Told that she is not eating. ); Denies nausea or vomiting
: Denies dysuria, frequency or urgency
Musculoskeletal: Reports no symptoms
Skin: Reports no symptoms
Neurological: Reports no symptoms; Denies dizzy or headache
Psychiatric: Reports no symptoms
Phy Exam
General Physical Exam
General Presentation: no apparent distress (Patient is laying comfortable in bed without complaints)
General age: appears stated age
General Skin: warm and dry
General Habitus: elderly
General Mental: alert
General Hydration: dry mucous membranes
ENT Exam
ENT Exam: TM's normal, pharynx normal and neck supple
Eye Exam
Eye Exam: EOMI
Cardiovascular Exam
Cardiovascular Exam: regular rate/rhythm, no edema and normal peripheral pulses
Pulmonary Exam
Pulmonary Exam: lungs clear, no respiratory distress, no rales, chest non tender, no crackles, no rhonchi, no wheezing and no cough
Gastrointestinal Exam
Gastrointestinal Exam: normal bowel sounds, non tender, soft, no organomegaly, no pulsatile mass and non distended
Musculoskeletal Exam
Musculoskeletal Exam: full ROM and no edema
Skin Exam
Skin Exam: normal color, warm/dry, no rash and no petechia
Psychiatric Exam
Psychiatric Exam: normal mood/affect
Course
Orders/Labs/Results
Orders:
Orders
05/27/24 17:38
Complete Blood Count/With Diff Urgent
Comprehensive Metabolic Panel Urgent
Lipase Urgent
05/27/24 18:49
Iohexol [Omnipaque] See Protocol PO NOW STA
05/27/24 18:50
CT Abd/pel W Iv And Oral Contr Urgent
Comment:
Reason For Exam: ABD PAIN
Urinalysis Reflex To Culture Urgent
Pantoprazole [Protonix IV] 40 mg IV NOW STA
05/27/24 18:51
0.9% Sodium Chloride 500 ml [Nss] 500 ml IV BOLUS
05/27/24 19:25
Iohexol [Omnipaque] 50 ml .ROUTE .STK-MED ONE
Abnormal Lab Results
05/27/24
17:38
Absolute Monos (auto) 0.7 H 10^3/uL
(0.1-0.6)
Lymphocytes % 16.8 L %
(20.5-51.1)
Chloride 97 L mmol/L
(98-107)
BUN 30 H mg/dl
(7-17)
Calcium 10.4 H mg/dl
(8.4-10.2)
Alkaline Phosphatase 257 H U/L
(38-126)
Lipase 344 H U/L
(23-300)
05/27/24 17:38
05/27/24 17:38
Chloride slightly low. Dehydration. Calcium very slightly elevated. Alk phos elevation. Lipase slightly elevated (possible early pancreatitis)
Vital Signs
Initial and Last Documented VS:
Initial Vital Signs
Temp Pulse Resp BP Pulse Ox
98.1 F 70 16 115/76 98
05/27/24 17:26 05/27/24 17:26 05/27/24 17:26 05/27/24 17:26 05/27/24 17:26
Last Documented Vital Signs
Temp Pulse Resp BP Pulse Ox
98.1 F 64 20 113/62 99
05/27/24 17:26 05/27/24 21:00 05/27/24 21:00 05/27/24 20:00 05/27/24 20:00
MDM/Problems Addressed
Differential Diagnosis Includes:
Pancreatitis, Gastritis,
MDM/Problems Addressed:
This is a 83 year old female that is sent in from [facility] with c/o abd pain. Spoke with the nurse and states that the patient has been c/o abd pain for the past few days. States that she has had diarrhea and that she is not eating.
Will check labs and get CT scan. Will give IV fluids and Medicate with Protonix.
Spoke with patient . He attempted to encourage patient to drink the Contrast. Patient states that there is nothing wrong with her and that she doesn't need to be here. Patient refused to drink Contrast so will get CT with IV. If normal will
discharge patient back to the shelter.
CT cont-does not appear to be centered at this location. Given contracted appearance of the gallbladder acute cholecystitis is considered overall unlikely. If strong clinical suspicion for acute cholecystitis, right upper quadrant ultrasound or
nuclear medicine HIDA scan may be of utility for further evaluation. Probable scarring or atelectasis at the right lung base. There may be a suggestion of tree-in-bud pattern consolidation at this location which can be seen with infectious or
inflammatory process such as acute bronchitis or bronchiolitis. Probable chronic fractures noted onf the superior and inferior pubic rami bilaterally. Non-fusion of chronic appearing fractures noted of the left superior ramus near the pubic
synthesis. IF concern for acute on chronic injury, would recommend correlation for point tenderness at this location. Incidental findings can be seen on CT report.
Son and here. Explained CT results to them and that patient will be started o Protonix and carafate and will need to follow up with the GI specialist for further. Patient to return with increased or changing abd pain, or any other concerns.
Chronic conditions affecting care:
Dementia
Acute Exacerbation and/or Progression of Chronic Illness:
NA
*Radiology
Radiology exam reviewed: radiology read reviewed (CT night hawk-Soft tissue stranding is noted in the region of the gastric antrum/first part of the duodenum. Thickening is noted of the wall of the distal stomach and preoximal duodenum in this
region. Appearance is concerning for potential large gastric or duodenal ulcer. The location is favored to), all reviewed NAD by ED Provider (CT cont-arise from the distalmost sstomach, with ulcer potentially directly visualized on image 20 series
301 axial delayed phase images. No evidence of pneumoperitoneum is noted to suggest perforation of ulcer at this time. Stranding is also noted near the region of the pancreatic head, though ) and other (CT cont-appears primariy located along the
distal stomach/proximal duodenum. However, would recommend correlation with lipase levels as pancreatitis is a possibility with this appearance. Gallbladder contracted at time of examination. Stranding is also noted near the gallbladder, though does
not )
*Pulse Oximetry
Patient hypoxic: no
*EKG
Interpreted by ED Provider?: NA
Rate: EKG- N/A
*Director Of Emergency Nursing Interpretation
Rate: normal
Heart Rate: 69
Rhythm: sinus
*Critical Care Note
Total Time (30-74mins, 75-104mins- exclusive of procedures): Not Applicable
ED Attending Note
-
Portions of this chart may have been created with voice recognition software.� Occasional wrong word or��sound alike� substitutions may have occurred due to the inherent limitations of voice recognition software.
Discharge Plan
Departure
Patient Disposition: Jail/SNF
Date of Disposition: 05/27/24
Time of Disposition: 22:30
Patient with high blood pressure during this ER visit?: No
Condition: Good
Covid-19: Not Applicable
Discharge Problem:
Gastric Vs Duodenal ulcer
Instructions: [place] Diet, Gastric Ulcer ED
Prescriptions:
New
pantoprazole [Protonix] 40 mg tablet,delayed release (DR/EC)
40 mg PO DAILY Qty: 30 0RF
sucralfate [Carafate] 1 gram tablet
1 g PO ACHS Qty: 40 0RF
Rx Instructions:
30min to 1 hour before meals and HS. Dissolve 2 tsp water and drink.
No Action
lansoprazole 30 mg Capsule,Delayed Release(Dr/Ec)
30 mg PO DAILY
acetaminophen 325 mg Tablet
650 mg PO Q4HPRN PRN (Reason: mild pain/WHITE/temp> 100.4F) Qty: 0 0RF
aspirin 81 mg Tablet,Chewable
81 mg PO BID Qty: 0 0RF
Referrals:
UNKNOWN - PT DOES,NOT KNOW [Family Provider] -
Cindi Tamez, DO [Active] - Follow up in 2-3 days
Activity Restrictions/Additional Instructions:
As discussed, your blood work shows that you are dehydrated. Please increase your water intake to 8-8oz glasses daily. Your CT shows that there is a Gastric/Duodenal ulcer. This will need to be further evaluated with the GI specialist. You have been
given 2 prescription. The first is for Carafate to take 30min to 1 hour before meals and again at bedtime. The second is Protonix which is once daily. IF YOU HAVE INCREASED OR CHANGING PAIN, OR YOU HAVE ANY OTHER CONCERNS PLEAES RETURN TO THE
EMERGENCY ROOM.
Interventions
Interventions:
*Risk Screen - Suicide Last Done: 05/27/24 19:47
*General Assessment Last Done: 05/27/24 19:47
*Neglect/Abuse Screening Last Done: 05/27/24 19:47
*ED COVID-19 Vaccine History Last Done: 05/27/24 19:47
AP-Lsnjtr-[id number] Assessment Last Done: 05/27/24 19:04
Discharge Date and Time
Print Language: SLOVAK
[2024-05-27 19:04] VITALS: BP 121/72
[2024-05-27] MEDS: OMNIPAQUE PO (19:09)
[2024-05-27] MEDS: NSS 500 IV (19:09)
[2024-05-27] MEDS: PROTONIX IV 40 MG IV (19:09)
[2024-05-27] MEDS: OMNIPAQUE 50 ML PO (19:27)
[2024-05-27 20:00] VITALS: BP 113/62
[2024-05-27 22:32] VITALS: BP 114/68
[2024-05-27 22:36] VITALS: BP 114/68
[2024-05-27] MEDS: CARAFATE SUSPENSION 1 GM PO (22:38)
== END 2024-05-27 22:46 ==
LOC: EMR 17:21
PROVIDERS: Emergency Medicine; EMERGENCY PHYSICIAN Emergency Medicine
DX: R10.30 Lower abdominal pain, unspecified (principal); E86.0 Dehydration; F03.90 Unspecified dementia, unspecified severity, without behavioral disturbance, psychotic disturbance, mood disturbance, and anxiety; Z87.891 Personal history of nicotine dependence; Z90.49 Acquired absence of other specified parts of digestive tract
CPT/HCPCS: 96374; 96361; 99284; 74177; 80053; 83690; 85025; Q9967

== ENCOUNTER 2024-07-01 22:47 | Emergency (ER) | payer MEDICARE, BC, SELFPAY ==
[2024-07-01 22:49] VITALS: BP 129/71
[2024-07-01 23:00] VITALS: BP 138/74
--- NOTE | 2024-07-01 23:02 | ED.GENMED ---
History of Present Illness
General
Chief Complaint: Fall
Source: patient
Time Seen by Provider: 07/01/24 22:52
History of Present Illness
History of Present Illness:
83-year-old female presents to the emergency room for evaluation of a left arm injury. Patient had a trip and fall injuring her left wrist. No head strike. No other complaints. She does not take any oral anticoagulants. Patient is right-hand
dominant.
Past History
Past History
ED Past Medical History: Other (Overactive bladder )
ED Past Surgical History: Appendectomy and Orthopedic (Bilateral hip replacement)
Social History
Tobacco: Former smoker
Alcohol: Occasional
Personal:
Living: prison ()
Phy Exam
Physical Exam
Physical Exam:
General: Awake, Alert, Oriented X3. No acute distress.
Vitals: unremarkable
Head: Atraumatic
Eyes: Pupils equal, EOMI
Throat: Airway intact, no exudates
Neck: Trachea midline
Lungs: Clear and equal b/l
Heart: Regular rate, no murmurs
Neuro: Nonfocal
Skin: Warm, dry, no rash
Extremities: pulses equal b/l, no edema. Mild swelling and tenderness distal radius left arm.
Course
Orders/Labs/Results
Orders:
Orders
07/01/24 23:02
CR Wrist - Left Min 3 Views Urgent
Comment:
Reason For Exam: pain after a fall
Vital Signs
Initial and Last Documented VS:
Initial Vital Signs
Temp Pulse Resp BP Pulse Ox
98.3 F 59 18 129/71 100
07/01/24 22:49 07/01/24 22:49 07/01/24 22:49 07/01/24 22:49 07/01/24 22:49
Last Documented Vital Signs
Temp Pulse Resp BP Pulse Ox
98.1 F 59 18 138/74 99
07/01/24 22:49 07/01/24 22:49 07/01/24 22:49 07/01/24 23:00 07/01/24 23:33
MDM/Problems Addressed
Differential Diagnosis Includes:
fracture, dislocation, sprain
MDM/Problems Addressed:
Patient presents with left wrist pain after fall. Imaging shows no acute fracture on my evaluation. Patient did not strike her head had no loss of consciousness. She is no visible signs of head strike or trauma.
*Pulse Oximetry
Patient hypoxic: no
*Critical Care Note
Total Time (30-74mins, 75-104mins- exclusive of procedures): Not Applicable
ED Attending Note
-
Portions of this chart may have been created with voice recognition software.� Occasional wrong word or��sound alike� substitutions may have occurred due to the inherent limitations of voice recognition software.
Discharge Plan
Departure
Patient Disposition: Assisted Living
Date of Disposition: 07/01/24
Time of Disposition: 23:56
Patient with high blood pressure during this ER visit?: No
Condition: Good
Discharge Problem:
Sprain of left wrist
Instructions: BLOOD PRESSURE
Prescriptions:
No Action
lansoprazole 30 mg Capsule,Delayed Release(Dr/Ec)
30 mg PO DAILY
acetaminophen 325 mg Tablet
650 mg PO Q4HPRN PRN (Reason: mild pain/HWITE/temp> 100.4F) Qty: 0 0RF
aspirin 81 mg Tablet,Chewable
81 mg PO BID Qty: 0 0RF
pantoprazole [Protonix] 40 mg tablet,delayed release (DR/EC)
40 mg PO DAILY Qty: 30 0RF
sucralfate [Carafate] 1 gram tablet
1 g PO ACHS Qty: 40 0RF
Rx Instructions:
30min to 1 hour before meals and HS. Dissolve 2 tsp water and drink.
Referrals:
UNKNOWN - PT DOES,NOT KNOW [Family Provider] -
Interventions
Interventions:
*Risk Screen - Suicide Last Done: 07/01/24 22:49
*General Assessment Last Done: 07/01/24 22:49
*Neglect/Abuse Screening Last Done: 07/01/24 22:49
ED- Fall Risk Assessment Last Done: 07/01/24 22:49
ED-Musculoskeletal Assessment Last Done: 07/01/24 23:33
ED- Neurological Assessment Last Done: 07/01/24 23:33
ED-Skin Assessment Last Done: 07/01/24 22:49
Discharge Date and Time
Print Language: TURKISH
[2024-07-02] VITALS: BP 137/70
== END 2024-07-02 02:19 ==
LOC: EMR 22:47
PROVIDERS: EMERGENCY PHYSICIAN Emergency Medicine
DX: S63.502A Unspecified sprain of left wrist, initial encounter (principal); W01.0XXA Fall on same level from slipping, tripping and stumbling without subsequent striking against object, initial encounter; Z87.891 Personal history of nicotine dependence; Z96.643 Presence of artificial hip joint, bilateral
CPT/HCPCS: 99283; 73110

== ENCOUNTER 2024-10-29 21:39 | Inpatient (IN) | payer MEDICARE, BC, SELFPAY ==
[2024-10-29 17:34] VITALS: BP 127/52
[2024-10-29 17:35] VITALS: BP 127/52
--- NOTE | 2024-10-29 17:45 | ED.GENMED ---
History of Present Illness
General
Chief Complaint: Musculo-Skeletal Complaint
Time Seen by Provider: 10/29/24 17:45
History of Present Illness
History of Present Illness:
TIME OF INITIAL ENCOUNTER:
HPI: Patient was at a family member's house, started walking and tripped on something as her right foot fell asleep. Of note she had no other extremity weakness. Her son was right there. He confirmed that she did not strike her head. She is not
on any anticoagulation or antiplatelets. She normally resides at [facility] and does have some degree of early stages of dementia. She did receive fentanyl prior to arrival.
EXAM:
GENERAL: Well appearing only in distress when she attempts to move the right upper extremity
CERVICAL SPINE: No midline c-spine tenderness with excellent AROM
HEAD: No evidence of craniofacial trauma
CHEST: No chest wall tenderness, normal heart sounds
LUNGS: Equal lung sounds, no respiratory distress
ABDOMEN: No abdominal tenderness, no peritoneal signs
EXTREMITIES: Markedly decreased active range of motion at the right shoulder, there is proximal humerus tenderness, there is no tenderness at the right forearm or hand, she has good active range of motion at the wrist, there are no lacerations,
NEURO: Good distal strength all extremities, appropriate mental status, normal speech/language
NUMBER AND COMPLEXITY OF PROBLEMS ADDRESSED AT THE ENCOUNTER
� Chronic conditions affecting care: Mild dementia
� Acute Exacerbation and/or Progression of Chronic Illness: This is an acute problem
� Differential Diagnosis includes: Proximal humerus fracture, midshaft humerus fracture, no clinical evidence for head injury
AMOUNT AND/OR COMPLEXITY OF DATA TO BE REVIEWED AND ANALYZED
� I performed an independent evaluation of and my interpretation is:
EKG:
CT:
X-rays: Initial x-ray shows displaced angulated periprosthetic mid right humerus fracture. After reduction, there has been some improvement but some angulation persist
Laboratory Studies:
Other:
� Review of other/old records: The patient was seen here with a sprain of the left wrist
� Clinical information was obtained by an independent historian: I spoke to the son at bedside for history
� Prescriptions/Medications Considered but not given:
� Further testing considered but not performed:
RISK OF COMPLICATIONS AND/OR MORBIDITY OR MORTALITY OF PATIENT MANAGEMENT
� Social determinants of health affecting care: Resides at
� Discussion with other providers: I spoke to Dr. Mas, on-call Ortho, who agrees patient could be kept in the hospital and recommends using the hospitalist service. He also recommends the patient should stay n.p.o. after
midnight tonight in case they do surgery tomorrow but it appears that it would be more likely done on Wednesday. Dr. Austin for admission.
� Escalation of care including admission/observation vs risk of discharge considered: The patient did receive fentanyl prior to arrival but son feels she needs more analgesia. Will give low-dose Dilaudid.
ANY OTHER UPDATES:
I did reduce the fracture however there was only some improvement however the patient's pain did improve.
Past History
Past History
ED Past Medical History: Other (Overactive bladder )
ED Past Surgical History: Appendectomy and Orthopedic (Bilateral hip replacement)
Social History
Tobacco: Former smoker
Alcohol: Occasional
Personal:
Living: correction ()
Phy Exam
Physical Exam
Physical Exam:
See HPI
Course
Orders/Labs/Results
Orders:
Orders
10/29/24 17:53
HYDROmorphone [Dilaudid] 0.5 mg IV NOW STA
Ondansetron Injectable [Zofran] 4 mg IV NOW STA
CR Humerus - Right Min 2 View* Urgent
Comment:
Reason For Exam: trauma
CR Shoulder, Trauma - Right Urgent
Comment:
Reason For Exam: trauma
10/29/24 17:58
Sling Right-Treatment ONCE
10/29/24 19:19
Humerus, Right 2 Views [CR Humerus - Right Min 2 View*] Urgent
Comment:
Reason For Exam: post reduction
10/29/24 19:28
Basic Metabolic Panel Urgent
Complete Blood Count/With Diff Urgent
10/29/24 20:44
HYDROmorphone [Dilaudid] 0.5 mg IV NOW STA
10/29/24 21:01
EKG [Electrocardiogram (*1)] Urgent
Reason for Study: PreOp
10/29/24 21:11
Admit/Transfer Patient As Directed
Co-Sign Provider:
Level of Care: Inpatient admission
Assign to:: Medical/Surgical
Physician / Group: Imer Austin
Diagnosis: Closed angulated displaced periprosthetic mid-shaft humerus fracture
Reason for Hospitalization: Closed angulated displaced periprosthetic mid-shaft humerus fracture
Expected length of stay greater than two midnights?: Yes
ELOS- Estimated Length of Stay in days: 3
I certify the patient meets the requirements for IP care: Yes
PRN Pain Medication Management As Directed
May give lesser potent ordered pain med per pt: Yes
preference::
Protocol:: Medication orders for pain may be administered in a
manner that supports deferring to patient preference
when the pt is:
- Requesting an ordered lesser potent pain medication.
Least to most potent pain medications are defined
as: acetaminophen < NSAID < tramadol < opioids
(morphine, oxycodone, hydromorphone).
- Requesting a lesser dose of the same medication IF
ORDERED.
- Requesting a less intrusive route of administration
if both routes are prescribed by the provider (PO <
IV).
10/29/24 21:12
Code Status As Directed
Resuscitation Status: Do not resuscitate
Reached after discussion with pt or family/Healthcare POA: Yes
Decision communicated with: Montana Castillo
DNR Bracelet Application ONCE
Abnormal Lab Results
10/29/24
19:28
RBC 3.63 L 10^6/uL
(4.20-5.40)
Hgb 11.2 L g/dL
(12.0-16.0)
Hct 31.9 L %
(37.0-47.0)
Absolute Lymphs (auto) 0.6 L 10^3/uL
(1.2-3.4)
Neutrophils % 82.4 H %
(42.2-75.2)
Lymphocytes % 8.7 L %
(20.5-51.1)
Chloride 110 H mmol/L
(98-107)
Carbon Dioxide 19 L mmol/L
(22-30)
BUN 24 H mg/dl
(7-17)
Glucose 116 H mg/dl
(70-99)
10/29/24 19:28
10/29/24 19:28
Vital Signs
Initial and Last Documented VS:
Initial Vital Signs
Temp Pulse Resp BP Pulse Ox
36.5 C 54 18 127/52 96
10/29/24 17:34 10/29/24 17:34 10/29/24 17:34 10/29/24 17:34 10/29/24 17:34
Last Documented Vital Signs
Temp Pulse Resp BP Pulse Ox
36.5 C 64 18 150/72 99
10/29/24 17:34 10/29/24 20:44 10/29/24 20:44 10/29/24 20:44 10/29/24 20:44
Procedures
Joint/Fracture Reduction
Right Arm:
Indication for procedure:: Displaced angulated fracture
Procedure completed by: Dr. Rosa Cohen
Consent form signed: No
If no, reason: Emergency procedure
Joint reduced: without anesthesia
Anesthesia/sedation: Other (The patient was given Dilaudid and had fentanyl earlier)
Injury was: closed
Further treatement: needs further treatment
Post reduction exam: unstable
Capillary Refill: normal
Normal distal neurovascular exam?: Yes
*Critical Care Note
Total Time (30-74mins, 75-104mins- exclusive of procedures): Not Applicable
ED Attending Note
-
Portions of this chart may have been created with voice recognition software.� Occasional wrong word or��sound alike� substitutions may have occurred due to the inherent limitations of voice recognition software.
Discharge Plan
Departure
Patient Disposition: Admit
Date of Disposition: 10/29/24
Time of Disposition: 20:13
Presentation/result/management discussed w/ accepting MD/DO: Hospitalist
Discharge Problem:
Displaced fracture of right humerus
Interventions
Interventions:
*Risk Screen - Suicide Last Done: 10/29/24 17:34
*General Assessment Last Done: 10/29/24 17:34
*Neglect/Abuse Screening Last Done: 10/29/24 17:34
*ED- Fall Risk Assessment Last Done: 10/29/24 18:21
*ED COVID-19 Vaccine History Last Done: 10/29/24 18:21
ED-Musculoskeletal Assessment Last Done: 10/29/24 18:06
[2024-10-29] MEDS: ZOFRAN 4 MG IV (17:59)
[2024-10-29] MEDS: DILAUDID 0.5 MG IV ×2 (17:59→21:03)
[2024-10-29 18:00] VITALS: BP 147/63
[2024-10-29 19:37] LABS: % Basophils 0.4 % (0-2); % Eosinophils 1.9 % (0-6); % Immature Granulocytes 0.1 % (0-0.5); % Lymphocytes 8.7 % (20.5-51.1); % Monocytes 6.5 % (1.7-9.3); % Neutrophils 82.4 % (42.2-75.2); Absolute Eosinophils 0.1 10^3/uL (0-0.7); Absolute Lymphocytes 0.6 10^3/uL (1.2-3.4); Absolute Monocytes 0.5 10^3/uL (0.1-0.6); Absolute Neutrophils 5.7 10^3/uL (1.4-6.5); Hematocrit 31.9 % (37.0-47.0); Hemoglobin 11.2 g/dL (12.0-16.0); Mean Corp Hgb Conc. 35.1 g/dL (33.0-37.0); Mean Corpuscular Hgb 30.9 pg (27.0-31.0); Mean Corpuscular Volume 87.9 fL (81.0-99.0); Mean Platelet Volume 9.6 fL (7.4-10.4); Nucleated Red Blood Cells % 0 %; Platelet Count 176 10^3/uL (130-400); Red Blood Cell Count 3.63 10^6/uL (4.20-5.40); Red Cell Dist. Width 12.7 % (11.5-14.5); White Blood Cell Count 6.9 10^3/uL (4.8-10.8)
[2024-10-29 19:55] LABS: Blood Urea Nitrogen 24 mg/dl (7-17); Calcium 8.8 mg/dl (8.4-10.2); Carbon Dioxide 19 mmol/L (22-30); Chloride 110 mmol/L (98-107); Estimated Creatinine Clearance 40 ml/min; Glucose 116 mg/dl (70-99); Potassium 3.8 mmol/L (3.5-5.1); Sodium 139 mmol/L (135-145); eGFR > 60.00
--- NOTE | 2024-10-29 20:20 | HPS.HSE ---
Addendum entered and electronically signed by Imer Austin DO 10/29/24 21:38:
Patient seen and examined independently. Agree with findings and plan as set forth by KATHIA Fine.
Patient is an 83y F with H significant for dementia and R shoulder replacement who presents to ED complaining of RUE pain s/p fall at home today. Patient states that she stood from a chair and her foot was asleep. This caused her to stumble
and fall onto her outstretched R hand. She noted immediate pain in the RUE / shoulder area. Evaluation in the ED reveals mid-shaft humerus fracture at the distal aspect of the prior prosthesis.
Patient denies any prodrome of lightheadedness, dizziness, chest pain or dyspnea prior to her fall.
Her only complaint in the ED is RUE pain.
Ass:
Right Humerus Fracture
Dementia with Behavioral Disturbance
GERD
Plan:
Admit for further evaluation and treatment.
Patient with no personal history of IL, CVA, etc.
Increased risk for complications based primarily on age.
Benefits of planned procedure outweigh the potential risks and patient is OK to proceed to OR without additional pre-op evaluation(s).
Ortho consulted for evaluation.
Pain control / sling / supportive care overnight.
Original Note:
Family Physician
-
Family Physician:
Chief Complaint
-
mechanical fall
History of Present Illness
Patient is a 83-year-old female with past medical history significant for hyperlipidemia, dementia, GERD and osteoarthritis who presented to [facility] ED for evaluation of mechanical fall. Patient son reported to ED that patient stood up from sitting
position and tripped and fell. Denies that patient had a head strike and denied loss of consciousness. Fall was witnessed by son. Denies any recent illness, fever, chills, cough, shortness of breath, chest pain, nausea, vomiting, constipation,
diarrhea or urinary symptoms.
Medical History
Past Medical History
Past Medical History: Reports Other
Additional Past Medical History:
hyperlipidemia
dementia
GERD
osteoarthritis
overactive bladder
Past Surgical History: Reports Other
Additional Past Surgical History:
bilateral hip arthroplasty
appendectomy
Social History
Tobacco: Non-smoker
Alcohol: None
Drug: None
Personal:
Living: Assisted Living
Family History
Family History: Not pertinent
Allergies / Home Medications
Allergies reflects when Allergies were last updated in [employer].
Home Medications with original date entered in [employer]
Allergy/Medication List:
Allergies
Allergy/AdvReac Type Severity Reaction Status Date / Time
egg yolk Allergy Unknown Verified 10/29/24 17:41
Home Medications
atorvastatin 20 mg tablet 20 mg PO HS 10/29/24
calcium 600 mg (as carbonate)-vit D3 20 mcg (800 unit) chewable tablet (Caltrate plus D) 1 tab PO BID 10/29/24
cyanocobalamin (vitamin B-12) 1,000 mcg capsule 1,000 mcg PO DAILY 10/29/24
melatonin 5 mg tablet 5 mg PO HS 10/29/24
mirtazapine 15 mg tablet 15 mg PO HS 10/29/24
pantoprazole 40 mg tablet,delayed release (Protonix) 40 mg PO DAILY 10/29/24
quetiapine 25 mg tablet 25 mg PO 1400 10/29/24
risperidone 0.25 mg tablet 0.25 mg PO BID 10/29/24
sertraline 25 mg tablet 25 mg PO DAILY 10/29/24
Review of Systems
-
History Source: Patient
Constitutional: Reports No Symptoms
EENT: Reports No Symptoms
Respiratory: Reports No Symptoms
Cardiac: Reports No Symptoms
Abdomen/GI: Reports No Symptoms
: Reports No Symptoms
Musculoskeletal: Reports Joint Pain (right shoulder and arm pain )
Skin: Reports No Symptoms
Neurological: Reports No Symptoms
Endocrine: Reports No Symptoms
Hematologic/Lymphatic: Reports No Symptoms
Psych: Reports No Symptoms
Physical Exam
Vital Signs
Vital Signs
Temp Pulse Resp BP Pulse Ox
97.7 F 54 18 147/63 100
10/29/24 17:34 10/29/24 17:34 10/29/24 17:34 10/29/24 18:00 10/29/24 18:00
Physical Exam
General: Well Developed, Well Nourished and No Apparent Distress
HEENT: NormoCephalic, Moist mucous membranes and Atraumatic
Respiratory: Clear
Cardiac: S1/S2 and Regular Rhythm; No Murmur or Rub
GI: Soft, Non Tender, Non Distended and Normal Bowel Sounds; No Organomegaly
Rectal: Deferred by Provider
Genito-urinary: Deferred by me
Musculoskeletal: No Clubbing, No Cyanosis, No Edema and Other (left upper extremity splint in place, good cap refill and palpable pulses )
Skin: No Rash
Neuro: Awake, Alert and Nonfocal/grossly intact
Psych: Intact Judgment/Insight
Laboratory Results
-
10/29/24 19:28
10/29/24 19:28
Data Reviewed
-
Diagnostic Radiology: Report Reviewed by me (R Humerus/Shldr: Displaced, slightly angulated oblique fracture of the midhumerus diaphysis at the inferior margin of the humeral prosthesis medullary stem. No orthopedic hardware failure. Limited
assessment of the glenoid and scapular neck secondary to superimposition of the head of the prosthesis)
Lab Data: Labs Reviewed by me
Impression/Plan
-
IMPRESSION/PLAN:
#Closed angulated displaced periprosthetic mid-shaft humerus fracture
Right Humerus/Shoulder x-ray: Displaced, slightly angulated oblique fracture of the midhumerus diaphysis at the inferior margin of the humeral prosthesis medullary stem. No orthopedic hardware
failure. Limited assessment of the glenoid and scapular neck secondary to superimposition of the head of the prosthesis.
- Admit to med/surg
- Consult Orthopedics
- NPO after midnight possible OR tomorrow
- Consult PT
- pain regimen
#hyperlipidemia
- continue atorvastatin
#dementia
- continue mirtazapine, melatonin, quetiapine, risperidone and sertraline
#GERD
- continue pantoprazole
#osteoarthritis
#overactive bladder
Code status: DNR
DVT prophylaxis: SCDs
[2024-10-29 20:44] VITALS: BP 150/72
[2024-10-29 22:25] VITALS: BP 131/64
[2024-10-29 22:33] VITALS: BMI 19.8
[2024-10-29] MEDS: REMERON 15 MG PO (22:47)
[2024-10-29] MEDS: MELATONIN 5 MG PO (22:53)
[2024-10-29] MEDS: RISPERDAL 0.25 MG PO (22:53)
[2024-10-29] MEDS: LIPITOR 20 MG PO (22:53)
--- NOTE | 2024-10-29 23:11 | PTCARENOTE ---
22:30pt rec'vd from ER rue in cast with solo wrap and sling in place. Pt able to ambulate to bed, pt is aaox3 but forgetful as she attempted to use her NWB rue, pt with fall mat in bed placed, oriented to unit.
--- NOTE | 2024-10-29 23:16 | PTCARENOTE ---
Received pt from RN @ this time. Pt in bed asleep appears in no distress, rise and fall of chest noted, VS reviewed in chart. Bed in lowest position, call red within reach bed alarm activated. RUE in sling and elevated, + for right radial pulse no
swelling noted.
--- NOTE | 2024-10-29 23:28 | PTCARENOTE ---
Pt awake @ this time, reoriented to room and situation, discomfort in RUE , adjusted pillow to help with elevation, pt reports it feels better @ this time, call red within reach
[2024-10-30] MEDS: TYLENOL 650 MG PO ×2 (04:26→15:08)
--- NOTE | 2024-10-30 04:59 | PTCARENOTE ---
Pt reports pain mostly with movement , bladder scanned for 300ml urine, voided 200.
[2024-10-30 06:36] VITALS: BP 120/56
[2024-10-30 07:05] VITALS: BP 101/48
[2024-10-30 07:13] LABS: Hematocrit 32.7 % (37.0-47.0); Hemoglobin 11.5 g/dL (12.0-16.0); Mean Corp Hgb Conc. 35.2 g/dL (33.0-37.0); Mean Corpuscular Hgb 30.7 pg (27.0-31.0); Mean Corpuscular Volume 87.4 fL (81.0-99.0); Mean Platelet Volume 10.9 fL (7.4-10.4); Platelet Count 190 10^3/uL (130-400); Red Blood Cell Count 3.74 10^6/uL (4.20-5.40); Red Cell Dist. Width 12.6 % (11.5-14.5); White Blood Cell Count 6.8 10^3/uL (4.8-10.8)
[2024-10-30 07:31] LABS: Blood Urea Nitrogen 21 mg/dl (7-17); Calcium 8.9 mg/dl (8.4-10.2); Carbon Dioxide 18 mmol/L (22-30); Chloride 110 mmol/L (98-107); Glucose 97 mg/dl (70-99); Potassium 4.1 mmol/L (3.5-5.1); Sodium 141 mmol/L (135-145)
[2024-10-30 07:54] LABS: Estimated Creatinine Clearance 45 ml/min; eGFR > 60.00
[2024-10-30] MEDS: VITAMIN B-12 1000 MCG PO (08:03)
[2024-10-30] MEDS: OSCAL 500 + D 500 MG PO ×2 (08:03→20:58)
[2024-10-30] MEDS: RISPERDAL 0.25 MG PO ×2 (08:03→20:58)
[2024-10-30] MEDS: ZOLOFT 25 MG PO (08:03)
[2024-10-30] MEDS: PROTONIX 40 MG PO (08:04)
--- NOTE | 2024-10-30 08:16 | CON.ORTHO ---
Consultation
-
Date/Time Consultation Requested: November 03/2218
Date/Time Consultation Performed: November 03/0710
Requesting Provider: KATHIA Jennings
Performing Provider: Sussy for [facility]itting
Reason for Consultation: Right periprosthetic humerus fracture
Consultation - Orthopedics
History
History of Present Illness:
Patient is a 83-year-old female with PMH of hyperlipidemia, dementia, GERD and osteoarthritis who presented to [facility] ED for evaluation of mechanical fall. Patient son reported to ED that patient stood up from sitting position and tripped and fell.
Denies that patient had a head strike and denied loss of consciousness. Fall was witnessed by son. Reports prior right shoulder prosthesis in the remote past by unknown surgeon. we have been requesting consultation for the consideration of surgical
fixation of her fracture
Past Medical History:
hyperlipidemia
dementia
GERD
osteoarthritis
overactive bladder
Past Surgical History:
right shoulder hemiarthroplasty
bilateral hip arthroplasty
appendectomy
Social History:
Tobacco: Non-smoker
Alcohol: None
Drug: None
Personal:
Living: Assisted Living
Family History
Family History: Not pertinent
ROS:
12 point negative except for those mentioned in the HPI
Allergies / Home Medications
Allergy/AdvReac Type Severity Reaction Status Date / Time
egg yolk Allergy Unknown Verified 10/29/24 17:41
�Medication �Instructions �Recorded
atorvastatin 20 mg tablet 20 mg PO HS High Cholesterol 10/29/24
calcium 600 mg (as carbonate)-vit 1 tab PO BID Supplement 10/29/24
D3 20 mcg (800 unit) chewable
tablet (Caltrate plus D)
cyanocobalamin (vitamin B-12) 1,000 mcg PO DAILY Supplement 10/29/24
1,000 mcg capsule
melatonin 5 mg tablet 5 mg PO HS Sleep 10/29/24
mirtazapine 15 mg tablet 15 mg PO HS Mental Health/Anxiety 10/29/24
pantoprazole 40 mg tablet,delayed 40 mg PO DAILY Gastrointestinal 10/29/24
release (Protonix) Issue
quetiapine 25 mg tablet 25 mg PO 1400 Mental Health/Anxiety 10/29/24
risperidone 0.25 mg tablet 0.25 mg PO BID Mental 10/29/24
Health/Anxiety
sertraline 25 mg tablet 25 mg PO DAILY Mental 10/29/24
Health/Anxiety
Vital Signs / Lab Results
Temp Pulse Resp BP Pulse Ox
97.6 F 102 16 101/48 96
10/30/24 07:05 10/30/24 07:05 10/30/24 07:05 10/30/24 07:05 10/30/24 07:05
10/30/24 06:06
10/30/24 06:06
Assessment / Plan
PE: Afeb. Bedrest. Splint in place, sling at bedside. RUE skin intact. Scar noted from previous prosthesis placement. Some mild generalized edema. Pain of the entire upper arm. Wrist hand and fingers all move well. DNVI RUE
Xrays: RIGHT Shoulder and humerus reveals a periprosthetic midshaft, diaphyseal, humeral fracture just distal to the stem of her prosthesis
Impression VON
Plan: At length bedside discussion with the patient yields her understanding to the nature of her right midshaft periprosthetic humerus fracture. All nonoperative and operative management were discussed, including the RBAs of each approach to
management. After discussing all the associated risks with surgery she has elected to proceed. Plan for the OR will be Wednesday around noon under the direction of Dr. Garcia for an ORIF of her right humerus. OR aware. surgical and blood consents
have been signed and placed to the patient's chart. Operative site has been marked as the RUE. She is to be NPO pMN tomorrow in anticipation of surgery Wednesday. postop and rehab course were discussed as well, and will appreciate CM assistance
with disposition. splint and sling to remain. T&S requested. ABX and irrigation products OCTOR. Will follow along for now
[2024-10-30 10:27] VITALS: BP 106/54; PULSE 59; O2SAT 97
--- NOTE | 2024-10-30 13:44 | W.PN.HOSP.TC ---
Addendum entered and electronically signed by Yelena Choudhary MD 10/30/24 15:53:
I saw and evaluated the patient independently. I reviewed the resident�s note and agree with findings and plan as documented by Dr. Velasquez.
GENERAL: well developed, well nourished, female in no apparent distress
HEENT: NC/AT
HEART: regular rate and rhythm, +S1, +S2
LUNGS : clear to auscultation bilaterally
ABDOM: soft, nontender, nondistended, + bowel sounds
EXT: no cyanosis, clubbing--right arm in sling
NEUROLOGIC: grossly intact
mechanical fall--no prodrome--sustained Closed angulated displaced periprosthetic mid-shaft humerus fracture--apprec ortho--for ORIF Wednesday 11/01--pain regimen- Dilaudid and Acetaminophen--PT/OT recommends skilled rehab after discharge
Hyperlipidemia--continue atorvastatin
Dementia/Anxiety/Depression--continue mirtazapine, melatonin, quetiapine, risperidone and sertraline
GERD--continue pantoprazole
Osteoarthritis--Continue calcium/vitamin D
vit B12 deficiency--cont B12 supplements
DVT proph--SCD's
Code status -- DNR
Original Note:
Today's Communication/Plan
-
- Surgery on 11/01/24
- Keep NPO night before
Assessment / Plan
Assessment / Plan
Closed angulated displaced periprosthetic mid-shaft humerus fracture:
- Confirmed on Xray of humerus and shoulder 10/29/24
- Orthopedics Dr. Garcia met at bedside today, will perform ORIF of her right humerus on 11/01/24
- NPO from tomm night
- pain regimen- Dilaudid and Acetaminophen
- PT/OT reccomends skilled rehab after discharge
Hyperlipidemia:
- continue atorvastatin
Dementia
Anxiety
Depression:
- continue mirtazapine, melatonin, quetiapine, risperidone and sertraline
GERD:
- continue pantoprazole
Osteoarthritis:
- Continue calcium/vitamin D
DVT ppx- SCD's
DNR
Anticipated Discharge: 24 - 48 hours
Subjective/Interval History
-
Date of Service: October 30, 2024
No acute medical complaints today.
Objective Data
-
Labs:
Laboratory Results
10/30/24
06:06
WBC 6.8
Hgb 11.5 L
Hct 32.7 L
Plt Count 190
Sodium 141
Potassium 4.1
Chloride 110 H
Carbon Dioxide 18 L
BUN 21 H
Creatinine 0.8
Glucose 97
Calcium 8.9
Vital Signs:
Vital Signs
Temp Pulse Resp BP Pulse Ox
97.6 F 102 16 101/48 96
10/30/24 07:05 10/30/24 07:05 10/30/24 07:05 10/30/24 07:05 10/30/24 07:05
I&O
10/29/24 10/30/24 10/31/24
06:59 06:59 06:59
Intake Total 240 / 240
Output Total 200 / 200
Balance 40 / 40
Review of Systems
-
All other systems: Reviewed and negative
Musculoskeletal: Reports Other (Right arm weakness)
Physical Exam
-
General: Well Developed, Well Nourished, No Apparent Distress, Comfortable and Conversant
HEENT: PERRLA
Respiratory: Clear to Auscultation
Cardiac: Regular Rhythm and S1/S2
GI: Soft, Nontender, Nondistended and Normal Bowel Sounds
Genito-urinary: No Costovertebral Tender
Musculoskeletal: No Clubbing, No Cyanosis, No Edema and Other (Right arm is immobilized in a sling )
Skin: Warm and Dry
Neuro: Awake, Alert and Oriented
Psych: Calm
Data Reviewed
-
Diagnostic Radiology: Report Reviewed by me and Discussed with Physician
Labs: Labs Reviewed by me and Discussed with Physician
[2024-10-30 15:00] VITALS: BP 114/59
[2024-10-30] MEDS: SEROQUEL 25 MG PO (15:08)
--- NOTE | 2024-10-30 15:48 | PTCARENOTE ---
Patient tolerated sitting in chair for 3 hours. Patient ambulated to bathroom with assist x1. Patient c/o minimal pain in right arm. Tylenol given, ice pack applied. Call red in reach, bed alarm maintained. Patient is forgetful and confused to
place at times.
--- NOTE | 2024-10-30 16:08 | CM ---
Patient seen at bedside with physicians. Patient for surgery on wed. Patient lives at [facility] . Patient may benefit from rehab following surgery pending therapy assessments. CM will review with patient and family. Patient has a walker and a cane
at home. Patient physician Dr. Amaya and Patient uses the [email or web address] in [facility]. CM will continue to follow for discharge planning needs.
Plan; SNF vs return to [facility] personal care/[facility] watch for therapy assessment
[2024-10-30] MEDS: LIPITOR 20 MG PO (20:58)
[2024-10-30] MEDS: MELATONIN 5 MG PO (20:58)
[2024-10-30] MEDS: REMERON 15 MG PO (20:59)
[2024-10-30 23:05] VITALS: BP 102/46
[2024-10-31 07:00] VITALS: BP 113/58
[2024-10-31 07:06] LABS: Hemoglobin 10.7 g/dL (12.0-16.0); Mean Corp Hgb Conc. 34.5 g/dL (33.0-37.0); Mean Corpuscular Hgb 30.7 pg (27.0-31.0); Mean Corpuscular Volume 89.1 fL (81.0-99.0); Mean Platelet Volume 10.7 fL (7.4-10.4); Platelet Count 178 10^3/uL (130-400); Red Blood Cell Count 3.48 10^6/uL (4.20-5.40); Red Cell Dist. Width 12.9 % (11.5-14.5); White Blood Cell Count 5.4 10^3/uL (4.8-10.8)
[2024-10-31 07:14] LABS: Blood Urea Nitrogen 15 mg/dl (7-17); Calcium 8.9 mg/dl (8.4-10.2); Carbon Dioxide 25 mmol/L (22-30); Chloride 111 mmol/L (98-107); Estimated Creatinine Clearance 45 ml/min; Glucose 77 mg/dl (70-99); Potassium 3.9 mmol/L (3.5-5.1); Sodium 143 mmol/L (135-145); eGFR > 60.00
--- NOTE | 2024-10-31 08:26 | W.PN.ORTHO ---
Today's Communication / Plan
-
83-year-old female right periprosthetic humeral diaphyseal fracture plan for OR [address] Garcia
- May resume diet n.p.o. at midnight
- Type and screen on file
- Pain control on current regimen
- Antibiotics on-call to operating room
-Consent on file
Assessment
.
Distal Motor Intact: Yes
Dressing:
Clean, dry and intact.
Plan
.
Activity:
Out of bed.
PT/OT
Subjective
.
.:
Patient resting comfortably.
Vital Signs and Labs
.
Vital Signs and Labs:
Lab Results
10/31/24 05:32
10/31/24 05:32
Temp Pulse Resp BP Pulse Ox
98.2 F 57 14 113/58 98
10/31/24 07:00 10/31/24 07:00 10/31/24 07:00 10/31/24 07:00 10/31/24 07:00
--- NOTE | 2024-10-31 08:40 | W.PN.HOSP.TC ---
Addendum entered and electronically signed by Yelena Choudhary MD 10/31/24 15:32:
I saw and evaluated the patient independently. I reviewed the resident�s note and agree with findings and plan as documented by Dr. Velasquez.
GENERAL: well developed, well nourished, female in no apparent distress
HEENT: NC/AT
HEART: regular rate and rhythm, +S1, +S2
LUNGS : clear to auscultation bilaterally
ABDOM: soft, nontender, nondistended, + bowel sounds
EXT: no cyanosis, clubbing--right arm in sling
NEUROLOGIC: grossly intact
mechanical fall--no prodrome--sustained Closed angulated displaced periprosthetic mid-shaft humerus fracture--apprec ortho--for ORIF Wednesday 11/01--pain regimen- Dilaudid and Acetaminophen--PT/OT recommends skilled rehab after discharge
Hyperlipidemia--continue atorvastatin
Dementia with agitation/Anxiety/Depression--continue mirtazapine, melatonin, quetiapine, risperidone and sertraline--now on Soo-chair
GERD--continue pantoprazole
Osteoarthritis--Continue calcium/vitamin D
vit B12 deficiency--cont B12 supplements
DVT proph--SCD's
Code status -- DNR
Original Note:
Today's Communication/Plan
-
- Procedure scheduled for tommorow
Assessment / Plan
Assessment / Plan
Closed angulated displaced periprosthetic mid-shaft humerus fracture:
- Confirmed on Xray of humerus and shoulder 10/29/24
- Orthopedics Dr. Garcai met at bedside today, will perform ORIF of her right humerus on 11/01/24
- NPO from today midnight
- pain regimen- Dilaudid and Acetaminophen
- PT/OT reccomends skilled rehab after discharge
Unspecified anemia:
- hgb is 10.7, decreased from yesterday 11.5
- No palpitations, fatigue, lightheadedness, tachycardia
- Continue to trend hgb
Hyperlipidemia:
- continue atorvastatin
Dementia
Anxiety
Depression:
- continue mirtazapine, melatonin, quetiapine, risperidone and sertraline
GERD:
- continue pantoprazole
Osteoarthritis:
- Continue calcium/vitamin D
DVT ppx- SCD's
DNR
Anticipated Discharge: 24 - 48 hours
Subjective/Interval History
-
Date of Service: October 31, 2024
Patient has no acute complaints. Scheduled for her ORIF of her right humerus tomorrow with ortho.
Objective Data
-
Labs:
Laboratory Results
10/31/24
05:32
WBC 5.4
Hgb 10.7 L
Hct 31.0 L
Plt Count 178
Sodium 143
Potassium 3.9
Chloride 111 H
Carbon Dioxide 25
BUN 15
Creatinine 0.8
Glucose 77
Calcium 8.9
Vital Signs:
Vital Signs
Temp Pulse Resp BP Pulse Ox
98.2 F 57 14 113/58 98
10/31/24 07:00 10/31/24 07:00 10/31/24 07:00 10/31/24 07:00 10/31/24 07:00
I&O
10/30/24 10/31/24 11/01/24
06:59 06:59 06:59
Intake Total 240 / 240 1040 / 1040
Output Total 200 / 200
Balance 40 / 40 1040 / 1040
Review of Systems
-
All other systems: Reviewed and negative
Musculoskeletal: Reports Other (Right arm weakness)
Physical Exam
-
General: Well Developed, Well Nourished, No Apparent Distress, Comfortable and Conversant
HEENT: PERRLA
Respiratory: Clear to Auscultation
Cardiac: Regular Rhythm and S1/S2
GI: Soft, Nontender, Nondistended and Normal Bowel Sounds
Genito-urinary: No Costovertebral Tender
Musculoskeletal: No Clubbing, No Cyanosis, No Edema and Other (Right arm is immobilized in a sling )
Skin: Warm and Dry
Neuro: Awake, Alert and Oriented
Psych: Calm
Data Reviewed
-
Diagnostic Radiology: Report Reviewed by me and Discussed with Physician
Labs: Labs Reviewed by me and Discussed with Physician
[2024-10-31] MEDS: ZOLOFT 25 MG PO (10:17)
[2024-10-31] MEDS: OSCAL 500 + D 500 MG PO ×2 (10:17→19:40)
[2024-10-31] MEDS: RISPERDAL 0.25 MG PO ×2 (10:17→19:40)
[2024-10-31] MEDS: VITAMIN B-12 1000 MCG PO (10:17)
[2024-10-31] MEDS: PROTONIX 40 MG PO (10:17)
--- NOTE | 2024-10-31 13:44 | PTCARENOTE ---
Patient made multiple attempts to get up without calling for help. Bed and chair alarm maintained. When staff comes into room in response to chair alarm going off. Patient becomes angry and combative. Patient trying to leave multiple times to go
back to her own room. Staff tied to reorient patient without success. Patient hitting staff and yelling, 'I am leaving and you can't stop me.' Physician made aware.
--- NOTE | 2024-10-31 14:10 | W.PN.UPDATE ---
Update Note
Progress Note Update
agitation due to underlying dementia:
- patient is climbing out of bed, hitting staff
- Ordered Soo-chair
- ordered 0.25 ativan
- continue sertraline
[2024-10-31 15:10] VITALS: BP 109/54
[2024-10-31] MEDS: SEROQUEL 25 MG PO (15:58)
[2024-10-31] MEDS: ATIVAN 0.25 MG PO (16:00)
--- NOTE | 2024-10-31 16:18 | CM ---
Patient seen at bedside with physicians. Patient son present and requested referrals to [facility], [facility], [facility]. Patient for planned surgery tomorrow. CM will continue to follow for discharge planning needs.
Plan; SNF pending PT/OT recommendations bed availability.
[2024-10-31] MEDS: REMERON 15 MG PO (21:11)
[2024-10-31] MEDS: MELATONIN 5 MG PO (21:11)
[2024-10-31] MEDS: LIPITOR 20 MG PO (21:11)
[2024-10-31 23:31] VITALS: BP 144/69
[2024-11-01] VITALS (12 sets, daily range): BP systolic 88–119; BP diastolic 45–64
[2024-11-01] MEDS: TYLENOL 650 MG PO (01:21)
[2024-11-01 06:25] LABS: Hematocrit 32.2 % (37.0-47.0); Hemoglobin 11.4 g/dL (12.0-16.0); Mean Corp Hgb Conc. 35.4 g/dL (33.0-37.0); Mean Corpuscular Hgb 31.1 pg (27.0-31.0); Mean Platelet Volume 10.5 fL (7.4-10.4); Platelet Count 190 10^3/uL (130-400); Red Blood Cell Count 3.66 10^6/uL (4.20-5.40); Red Cell Dist. Width 12.6 % (11.5-14.5); White Blood Cell Count 5.8 10^3/uL (4.8-10.8)
[2024-11-01 06:50] LABS: Blood Urea Nitrogen 16 mg/dl (7-17); Calcium 9.5 mg/dl (8.4-10.2); Carbon Dioxide 22 mmol/L (22-30); Chloride 109 mmol/L (98-107); Estimated Creatinine Clearance 45 ml/min; Glucose 87 mg/dl (70-99); Potassium 3.6 mmol/L (3.5-5.1); Sodium 143 mmol/L (135-145); eGFR > 60.00
--- NOTE | 2024-11-01 07:35 | W.PN.UPDATE ---
Update Note
Progress Note Update
Ms. Mcpherson is resting comfortably in bed this morning, and denies any pain at present. She is scheduled for OR today under the direction of Dr. Garcia. She is able to wiggle her fingers, flex and extend her wrist. NVID.
NPO until surgery. Pain control prn. Sling for immobilization.
--- NOTE | 2024-11-01 07:52 | CM ---
Patient pending surgery today. Referrals sent to [facility], [facility], [facility], [place] and [facility]. Pending response and patient functional status following planned surgery today. CM will continue to follow for discharge planning needs.
Plan; SNF
[2024-11-01] MEDS: OSCAL 500 + D 500 MG PO ×2 (08:26→20:54)
[2024-11-01] MEDS: RISPERDAL 0.25 MG PO ×2 (08:26→20:54)
[2024-11-01] MEDS: VITAMIN B-12 1000 MCG PO (08:26)
[2024-11-01] MEDS: ZOLOFT 25 MG PO (08:26)
[2024-11-01] MEDS: PROTONIX 40 MG PO (08:26)
--- NOTE | 2024-11-01 12:06 | W.PN.HOSP.TC ---
Addendum entered and electronically signed by Yelena Choudhary MD 11/01/24 17:35:
I saw and evaluated the patient independently. I reviewed the resident�s note and agree with findings and plan as documented by Dr. Velasquez.
GENERAL: well developed, well nourished, female in no apparent distress
HEENT: NC/AT
HEART: regular rate and rhythm, +S1, +S2
LUNGS : clear to auscultation bilaterally
ABDOM: soft, nontender, nondistended, + bowel sounds
EXT: no cyanosis, clubbing--right arm in sling post op
NEUROLOGIC: grossly intact
mechanical fall--no prodrome--sustained Closed angulated displaced periprosthetic mid-shaft humerus fracture--apprec ortho--for ORIF Wednesday 11/01--pain regimen- Dilaudid and Acetaminophen--PT/OT recommends skilled rehab after discharge
Hyperlipidemia--continue atorvastatin
Dementia with agitation/Anxiety/Depression--continue mirtazapine, melatonin, quetiapine, risperidone and sertraline
GERD--continue pantoprazole
Osteoarthritis--Continue calcium/vitamin D
vit B12 deficiency--cont B12 supplements
DVT proph--deferred by ortho to us--starting tomorrow
Code status -- DNR
Original Note:
Today's Communication/Plan
-
- f/u orthopedics after surgery
Assessment / Plan
Assessment / Plan
Closed angulated displaced periprosthetic mid-shaft humerus fracture:
- Confirmed on Xray of humerus and shoulder 10/29/24
- Scheduled to recieve ORIF of her right humerus today on 11/01/24
- Was on NPO before surgery
- pain regimen- Dilaudid and Acetaminophen
- PT/OT recommends skilled rehab after discharge
Unspecified anemia:
- hgb is 11.4, increased from yesterday 10.7
- No palpitations, fatigue, lightheadedness, tachycardia
- Continue to trend hgb
Hyperlipidemia:
- continue atorvastatin
Dementia with multiple episodes of agitation
Anxiety
Depression:
- Patient was pleasant in conversation today morning.
- If patient continues to get agitated, consider .25 mg Ativan PRN
- continue mirtazapine, melatonin, quetiapine, risperidone and sertraline
GERD:
- continue pantoprazole
Osteoarthritis:
- Continue calcium/vitamin D
DVT ppx- SCD's
DNR
Anticipated Discharge: 24 - 48 hours
Subjective/Interval History
-
Date of Service: November 01, 2024
Nurse informed that she had agitation, restlessness, verbal outbursts overnight.
Today morning she had no acute complaints.
Objective Data
-
Labs:
Laboratory Results
11/01/24
05:49
WBC 5.8
Hgb 11.4 L
Hct 32.2 L
Plt Count 190
Sodium 143
Potassium 3.6
Chloride 109 H
Carbon Dioxide 22
BUN 16
Creatinine 0.8
Glucose 87
Calcium 9.5
Vital Signs:
Vital Signs
Temp Pulse Resp BP Pulse Ox
97.6 F 54 16 105/59 96
11/01/24 07:05 11/01/24 07:05 11/01/24 07:05 11/01/24 07:05 11/01/24 08:41
I&O
10/31/24 11/01/24 11/02/24
06:59 06:59 06:59
Intake Total 1040 / 1040 1200 / 1200
Balance 1040 / 1040 1200 / 1200
Review of Systems
-
All other systems: Reviewed and negative
Musculoskeletal: Reports Other (Right arm weakness)
Physical Exam
-
General: Well Developed, Well Nourished, No Apparent Distress, Comfortable and Conversant
HEENT: PERRLA
Respiratory: Clear to Auscultation
Cardiac: Regular Rhythm and S1/S2
GI: Soft, Nontender, Nondistended and Normal Bowel Sounds
Genito-urinary: No Costovertebral Tender
Musculoskeletal: No Clubbing, No Cyanosis, No Edema and Other (Right arm is immobilized in a sling )
Skin: Warm and Dry
Neuro: Awake, Alert and Oriented
Psych: Calm
Data Reviewed
-
Diagnostic Radiology: Report Reviewed by me and Discussed with Physician
Labs: Labs Reviewed by me and Discussed with Physician
[2024-11-01] MEDS: NSS 1000 IV (14:01)
--- NOTE | 2024-11-01 14:04 | PTCARENOTE ---
pt returned to room 2106 from PACU at 1350 via bed, pt drowsy , easily arousable and returns to sleep. VS: 97.6-73-16-99/56, 94% on RA. Right Arm w/sling in place, + radial pulse, hand is warm, decreased sensation. mepilex dressing intact to
right shoulder. ice pack in place. pt re-oriented to room and environment. bed alarm engaged.
[2024-11-01] MEDS: SEROQUEL 25 MG PO (15:18)
--- NOTE | 2024-11-01 16:09 | PTCARENOTE ---
resident notified low BP HR 66
[2024-11-01] MEDS: ANCEF 5 IV (17:23)
[2024-11-01] MEDS: LIPITOR 20 MG PO (22:12)
[2024-11-01] MEDS: MELATONIN 5 MG PO (22:12)
[2024-11-01] MEDS: REMERON 15 MG PO (22:12)
[2024-11-02] MEDS: NSS 1000 IV (00:28)
[2024-11-02] MEDS: ANCEF 5 IV (01:14)
[2024-11-02 03:50] VITALS: BP 102/55
--- NOTE | 2024-11-02 03:50 | DOWNTIME ---
There was a [employer] Downtime on 11/02/2024 from 0200 to 11/03/2023 at 0318 . Downtime documentation of patient's care, including medication administrations, has been reconciled in the electronic record per guidelines. Refer to the
patient's paper chart under the miscellaneous tab to see printed paper medication records and downtime forms.
[2024-11-02] MEDS: TYLENOL 650 MG PO ×2 (06:21→12:53)
--- NOTE | 2024-11-02 06:36 | W.PN.HOSP.TC ---
Addendum entered and electronically signed by Yelena Choudhary MD 11/02/24 14:18:
I saw and evaluated the patient independently. I reviewed the resident�s note and agree with findings and plan as documented by Dr. Velasquez.
GENERAL: well developed, well nourished, female in no apparent distress
HEENT: NC/AT
HEART: regular rate and rhythm, +S1, +S2
LUNGS : clear to auscultation bilaterally
ABDOM: soft, nontender, nondistended, + bowel sounds
EXT: no cyanosis, clubbing--right arm in sling post op
NEUROLOGIC: grossly intact
mechanical fall--no prodrome--sustained Closed angulated displaced periprosthetic mid-shaft humerus fracture--apprec ortho--s/p ORIF Wednesday 11/01--pain regimen- Dilaudid and Acetaminophen--PT/OT recommends skilled rehab after discharge--anticipate
tomorrow
Hyperlipidemia--continue atorvastatin
Dementia with agitation/Anxiety/Depression--continue mirtazapine, melatonin, quetiapine, risperidone and sertraline
GERD--continue pantoprazole
Osteoarthritis--Continue calcium/vitamin D
vit B12 deficiency--cont B12 supplements
DVT proph--deferred by ortho to us--starting tomorrow
Code status -- DNR
Original Note:
Today's Communication/Plan
-
- Have PT/OT follow up on patient
Assessment / Plan
Assessment / Plan
Closed angulated displaced periprosthetic mid-shaft humerus fracture:
- Confirmed on Xray of humerus and shoulder 10/29/24
- S/p ORIF of her right humerus day 1
- Back on cholesterol lowering diet
- pain regimen- Dilaudid and Acetaminophen
- PT/OT will follow up
Hypotension:
- Blood pressure yesterday was 88/48
- Increased rate of IV fluids from 80 to 100 and today blood pressure is 102/55.
Unspecified anemia:
- hgb is 9.3, yesterday 11.4
- No palpitations, fatigue, lightheadedness, tachycardia
- Continue to trend hgb
Hyperlipidemia:
- continue atorvastatin
Dementia with multiple episodes of agitation
Anxiety
Depression:
- Patient was pleasant in conversation today morning.
- If patient continues to get agitated, consider .25 mg Ativan PRN
- continue mirtazapine, melatonin, quetiapine, risperidone and sertraline
GERD:
- continue pantoprazole
Osteoarthritis:
- Continue calcium/vitamin D
DVT ppx- SCD's
DNR
Anticipated Discharge: 24 - 48 hours
Subjective/Interval History
-
Date of Service: November 02, 2024
No acute complaints at this time.
Blood pressure yesterday evening post op was low.
Objective Data
-
Labs:
Laboratory Results
11/02/24
06:00
WBC Pending
Hgb Pending
Hct Pending
Plt Count Pending
Sodium Pending
Potassium Pending
Chloride Pending
Carbon Dioxide Pending
BUN Pending
Creatinine Pending
Glucose Pending
Calcium Pending
Vital Signs:
Vital Signs
Temp Pulse Resp BP Pulse Ox
97.6 F 67 14 102/55 97
11/02/24 03:50 11/02/24 03:50 11/02/24 03:50 11/02/24 03:50 11/02/24 03:50
I&O
10/31/24 11/01/24 11/02/24
06:59 06:59 06:59
Intake Total 1040 / 1040 1200 / 1200 770 / 770
Balance 1040 / 1040 1200 / 1200 770 / 770
Review of Systems
-
All other systems: Reviewed and negative
Musculoskeletal: Reports Muscle Pain (Right arm which is immobilized in sling post ORIF) and Other (Right arm weakness)
Physical Exam
-
General: Well Developed, Well Nourished, No Apparent Distress, Comfortable and Conversant
HEENT: PERRLA
Respiratory: Clear to Auscultation
Cardiac: Regular Rhythm and S1/S2
GI: Soft, Nontender, Nondistended and Normal Bowel Sounds
Genito-urinary: No Costovertebral Tender
Musculoskeletal: No Clubbing, No Cyanosis, No Edema and Other (Right arm is immobilized in a sling )
Skin: Warm and Dry
Neuro: Awake, Alert and Oriented
Psych: Calm
Data Reviewed
-
Diagnostic Radiology: Report Reviewed by me and Discussed with Physician
Labs: Labs Reviewed by me and Discussed with Physician
[2024-11-02 07:00] VITALS: BP 123/59
--- NOTE | 2024-11-02 08:08 | W.PN.ORTHO ---
Today's Communication / Plan
-
PT/OT
Sling right upper extremity
Nonweightbearing right upper extremity
DVT prophylactics per medical team
Follow-up orthopedics 2 weeks postop
Assessment
.
Distal Motor Intact: Yes
Dressing:
Clean, dry and intact.
Plan
.
Surgery / Date: ORIF R periprosthetic humerus fx 11/01 Ritting
Activity:
Out of bed.
PT/OT
Discharge Plan: SNF
Subjective
.
.:
Patient resting comfortably.
Vital Signs and Labs
.
Vital Signs and Labs:
Temp Pulse Resp BP Pulse Ox
98.3 F 66 16 123/59 97
11/02/24 07:00 11/02/24 07:00 11/02/24 07:00 11/02/24 07:00 11/02/24 07:00
[2024-11-02 08:50] LABS: Hematocrit 26.3 % (37.0-47.0); Hemoglobin 9.3 g/dL (12.0-16.0); Mean Corp Hgb Conc. 35.4 g/dL (33.0-37.0); Mean Corpuscular Hgb 30.8 pg (27.0-31.0); Mean Corpuscular Volume 87.1 fL (81.0-99.0); Mean Platelet Volume 10.2 fL (7.4-10.4); Platelet Count 188 10^3/uL (130-400); Red Blood Cell Count 3.02 10^6/uL (4.20-5.40); White Blood Cell Count 8.3 10^3/uL (4.8-10.8)
[2024-11-02] MEDS: VITAMIN B-12 1000 MCG PO (09:00)
[2024-11-02] MEDS: PROTONIX 40 MG PO (09:00)
[2024-11-02] MEDS: RISPERDAL 0.25 MG PO ×2 (09:00→19:46)
[2024-11-02] MEDS: ZOLOFT 25 MG PO (09:00)
[2024-11-02] MEDS: OSCAL 500 + D 500 MG PO ×2 (09:00→19:46)
[2024-11-02 09:29] VITALS: BP 123/61; PULSE 59; O2SAT 100
[2024-11-02 09:54] LABS: Blood Urea Nitrogen 15 mg/dl (7-17); Calcium 8.3 mg/dl (8.4-10.2); Carbon Dioxide 22 mmol/L (22-30); Chloride 110 mmol/L (98-107); Estimated Creatinine Clearance 40 ml/min; Glucose 88 mg/dl (70-99); Potassium 3.5 mmol/L (3.5-5.1); Sodium 143 mmol/L (135-145); eGFR > 60.00
[2024-11-02 10:58] VITALS: BP 123/61; PULSE 59; O2SAT 100
[2024-11-02 11:05] VITALS: BP 111/53
[2024-11-02] MEDS: NSS IV ×2 (11:08→18:24)
--- NOTE | 2024-11-02 13:18 | CM ---
Patient seen at bedside, with son present. CM sent referral to [facility] at patient son request. Patient accepted pending bed availability at [facility]. CM spoke with [facility] [phone]. CM will call in am to confirm bed
availability. Patient son aware that patient has possible bed at [facility] pending bed availability as well. CM sent referral via all scripts. CM will continue to follow for discharge planning needs.
Plan; SNF; [facility] vs [facility] pending bed availability.
--- NOTE | 2024-11-02 14:31 | PN.CDI ---
CDI
- -
CDI:
Physician Documentation Request
Admit Date: 10/29/24 21:39
Dear Doctor Kenrick/Resident ,
Please review the following and provide your response in the progress notes.
Clinical Indicators:
Pt admitted with Closed angulated displaced periprosthetic mid-shaft humerus fracture s/p ORIF on 11/01
Documented per progress note 11/02,' Unspecified anemia hgb is 9.3,... Continue to trend hgb yesterday 11.4...Hypotension: Blood pressure yesterday was 88/4 Increased rate of IV fluids from 80 to 100 and today blood pressure is 102/55....'
Trended HGB/Hematocrits below
Based on the above, could you clarify, in your progress note, which of the following is the most likely type of anemia you are evaluating, monitoring and/or treating?
Acute blood loss anemia
Anemia unspecified only
Other ( please specify)
Use of terms such as suspected, likely, concern for, or probable (associated with a specific diagnosis that is being evaluated, monitored, or treated as if it exists) are acceptable and can be coded in the inpatient setting, when documented at the
time of discharge.
Thank you,
Kaylie Gilliam RN
CDI Specialist
[place] [facility]
Please use your independent medical judgment in providing your response.
[2024-11-02 15:00] VITALS: BP 92/47
[2024-11-02] MEDS: SEROQUEL 25 MG PO (15:29)
[2024-11-02] MEDS: REMERON 15 MG PO (19:46)
[2024-11-02] MEDS: MELATONIN 5 MG PO (19:49)
[2024-11-02] MEDS: LIPITOR 20 MG PO (19:49)
--- NOTE | 2024-11-02 22:42 | PTCARENOTE ---
episode of agitation pt was trying to leave the hospital. unable to consul pt - called son and requested him to come in he agreed to talk to pt on the phone. pt still agitated and trying to leave, ambulated her in halls. she agreed to take her pm
meds and calmed down after a few hours. currently sleeping in bed with bed alarm functioning
--- NOTE | 2024-11-02 23:36 | PTCARENOTE ---
pt refusing bp check will reattempt later
[2024-11-03] MEDS: TYLENOL 650 MG PO (01:09)
[2024-11-03 02:00] VITALS: BP 105/57
--- NOTE | 2024-11-03 05:32 | W.PN.ORTHO ---
Today's Communication / Plan
-
PT/OT
Sling right upper extremity; ROM ok of elbow wrist and hand
will likely clean incision area and place new dressing, but pt will likely self-remove 2/2 baseline dementia
Nonweightbearing right upper extremity
DVT prophylactics per medical team
Follow-up orthopedics 2 weeks postop
DC info placed; ortho surgery will follow peripherally at this time.
Assessment
.
Distal Motor Intact: Yes
Plan
.
Surgery / Date: ORIF R periprosthetic humerus fx 11/01 Ritting
Activity:
Out of bed.
PT/OT
Subjective
.
.:
Patient resting comfortably.
Vital Signs and Labs
.
Vital Signs and Labs:
Temp Pulse Resp BP Pulse Ox
98.1 F 64 16 105/57 98
11/03/24 02:00 11/03/24 02:00 11/03/24 02:00 11/03/24 02:00 11/03/24 02:00
Physical Exam
-
dressing currently not in place- NVI C5-T1; likely removed by patient- yeni in place, dry without drainage or surrounding erythema
[2024-11-03 07:00] VITALS: BP 117/61
[2024-11-03 08:09] LABS: Hematocrit 27.9 % (37.0-47.0); Hemoglobin 9.7 g/dL (12.0-16.0); Mean Corp Hgb Conc. 34.8 g/dL (33.0-37.0); Mean Corpuscular Hgb 30.7 pg (27.0-31.0); Mean Corpuscular Volume 88.3 fL (81.0-99.0); Mean Platelet Volume 9.8 fL (7.4-10.4); Platelet Count 195 10^3/uL (130-400); Red Blood Cell Count 3.16 10^6/uL (4.20-5.40); Red Cell Dist. Width 13.1 % (11.5-14.5); White Blood Cell Count 5.2 10^3/uL (4.8-10.8)
[2024-11-03 08:35] LABS: Blood Urea Nitrogen 15 mg/dl (7-17); Carbon Dioxide 27 mmol/L (22-30); Chloride 111 mmol/L (98-107); Estimated Creatinine Clearance 45 ml/min; Glucose 88 mg/dl (70-99); Potassium 3.7 mmol/L (3.5-5.1); Sodium 143 mmol/L (135-145); eGFR > 60.00
[2024-11-03] MEDS: RISPERDAL 0.25 MG PO (10:16)
[2024-11-03] MEDS: VITAMIN B-12 1000 MCG PO (10:16)
[2024-11-03] MEDS: ZOLOFT 25 MG PO (10:16)
[2024-11-03] MEDS: PROTONIX 40 MG PO (10:16)
[2024-11-03] MEDS: OSCAL 500 + D 500 MG PO (10:16)
--- NOTE | 2024-11-03 12:19 | CM ---
Patient seen at bedside, with physicians. Patient for discharge today to [facility]. Per admissions they have a bed for patient. Please call report [phone]/fax to [phone]. Bed available after 1pm. CM called to patient son, Jonathan LOZANO
completed yesterday and CM completed ambulance documentation. CM will continue to follow for discharge planning needs.
Plan; SNF; [facility]
[2024-11-03 13:12] VITALS: BP 91/46
--- NOTE | 2024-11-03 14:09 | W.PN.HOSP.TC ---
Addendum entered and electronically signed by Yelena Choudhary MD 11/03/24 14:39:
I saw and evaluated the patient independently. I reviewed the resident�s note and agree with findings and plan as documented by Dr. Velasquez, with the exception highlighted in BOLD.
GENERAL: well developed, well nourished, female in no apparent distress
HEENT: NC/AT
HEART: regular rate and rhythm, +S1, +S2
LUNGS : clear to auscultation bilaterally
ABDOM: soft, nontender, nondistended, + bowel sounds
EXT: no cyanosis, clubbing--right arm in sling post op
NEUROLOGIC: grossly intact
mechanical fall--no prodrome--sustained Closed angulated displaced periprosthetic mid-shaft humerus fracture--apprec ortho--s/p ORIF Wednesday 11/01--pain regimen- Dilaudid and Acetaminophen--PT/OT recommends skilled rehab after discharge--anticipate
tomorrow
acute anemia--due to acute blood loss anemia from long bone fracture and IVF dilution from surgery
Hyperlipidemia--continue atorvastatin
Dementia with agitation/Anxiety/Depression--continue mirtazapine, melatonin, quetiapine, risperidone and sertraline
GERD--continue pantoprazole
Osteoarthritis--Continue calcium/vitamin D
vit B12 deficiency--cont B12 supplements
DVT proph--deferred by ortho to us--starting tomorrow
Code status -- DNR
OK for d/c
Original Note:
Today's Communication/Plan
-
- Discharge to SNF
- Follow up CBC in 1 week with PCP
- Follow up orthopedics in 2 weeks
Assessment / Plan
Assessment / Plan
Closed angulated displaced periprosthetic mid-shaft humerus fracture:
- Confirmed on Xray of humerus and shoulder 10/29/24
- S/p ORIF of her right humerus day 2
- Discharge on cholesterol lowering diet
- Follow up with orthopedics in 2 weeks
- Lovenox 30 mg for 10 days for DVT prophylaxes in patient post surgery to prevent risk of DVT and PE
- Magnesium citrate post surgery for constipation as patient will be immobile
Hypotension:
- Resolved
- Blood pressure is controlled at 117/61 today and stable
Unspecified anemia:
- hgb is 9.7 yesterday 9.3
- No palpitations, fatigue, lightheadedness, tachycardia
- follow up CBC in 1 week with PCP
Hyperlipidemia:
- continue atorvastatin
Dementia with multiple episodes of agitation
Anxiety
Depression:
- Patient was pleasant in conversation today morning.
- continue mirtazapine, melatonin, quetiapine, risperidone and sertraline
GERD:
- continue pantoprazole
Osteoarthritis:
- Continue calcium/vitamin D
DVT ppx- lovenox on discharge
DNR
Anticipated Discharge: Today
Subjective/Interval History
-
Date of Service: November 03, 2024
No acute medical complaints.
Objective Data
-
Labs:
Laboratory Results
11/03/24
07:31
WBC 5.2
Hgb 9.7 L
Hct 27.9 L
Plt Count 195
Sodium 143
Potassium 3.7
Chloride 111 H
Carbon Dioxide 27
BUN 15
Creatinine 0.8
Glucose 88
Calcium 9.0
Vital Signs:
Vital Signs
Temp Pulse Resp BP Pulse Ox
98.2 F 67 16 91/46 99
11/03/24 13:12 11/03/24 13:12 11/03/24 13:12 11/03/24 13:12 11/03/24 13:12
I&O
11/02/24 11/03/24 11/04/24
06:59 06:59 06:59
Intake Total 770 / 770 476 / 476 440 / 440
Balance 770 / 770 476 / 476 440 / 440
Review of Systems
-
All other systems: Reviewed and negative
Musculoskeletal: Reports Muscle Pain (Right arm which is immobilized in sling post ORIF) and Other (Right arm weakness)
Physical Exam
-
General: Well Developed, Well Nourished, No Apparent Distress, Comfortable and Conversant
HEENT: PERRLA
Respiratory: Clear to Auscultation
Cardiac: Regular Rhythm and S1/S2
GI: Soft, Nontender, Nondistended and Normal Bowel Sounds
Genito-urinary: No Costovertebral Tender
Musculoskeletal: No Clubbing, No Cyanosis, No Edema and Other (Right arm is immobilized in a sling )
Skin: Warm and Dry
Neuro: Awake, Alert and Oriented
Psych: Calm
Data Reviewed
-
Diagnostic Radiology: Report Reviewed by me and Discussed with Physician
Labs: Labs Reviewed by me and Discussed with Physician
[2024-11-03] MEDS: CITROMA 300 ML PO (14:26)
[2024-11-03] MEDS: SEROQUEL 25 MG PO (14:26)
--- NOTE | 2024-11-03 17:43 | W.DCSUMMARY ---
Addendum entered and electronically signed by Yelena Choudhary MD 11/03/24 18:29:
Read, reviewed, and agree. See same day progress note for additional details. Time spent coordinating care, DC planning, review of DC plan of care with resident, transition of care, review of records in EMR, med rec, consults, notes, d/w
consultants, nursing, family, and CM = 33 minutes
Original Note:
Discharge Summary
Discharge Data
Date of Admission: 10/29/24
Date of Discharge: 11/03/24
-
Pending Results: No
Hospital Course
Discharging Physician : Dr. Yelena Choudhary and Dr. Luc Velasquez
Disposition : alf/SNF
Primary care physician : Dr. Amaya
Principal Discharge diagnosis : Closed angulated displaced periprosthetic midshaft humerus fracture, hypotension, acute anemia, dementia with multiple episodes of agitation
Chronic Discharge diagnosis : Osteoarthritis, GERD, depression, anxiety
Hospital Course : Patient is an 83-year-old female with a past medical history of dementia, osteoarthritis, GERD, depression, hyperlipidemia, B12 deficiency presents with right upper extremity pain after falling today in her home. She was sitting
in a chair, got up and then ended up stumbling forward where she fell onto her outstretched right hand and noticed immediate severe pain in the right upper extremity. Humerus x-ray in the ED reveals midshaft humerus fracture of the right upper
extremity.
Problem #1: Closed angulated displaced periprosthetic midshaft humerus fracture---on day of discharge she is status post day 2 open reduction internal fixation of her humerus performed on. Her pain regimen in the hospital is hydromorphone and
acetaminophen. PT OT recommend skilled rehab after discharge and she is being discharged to [facility]. Follow-up with orthopedics outpatient in 2 weeks. Patient is to be nonweightbearing on right upper extremity. She is placed on
Lovenox 30 mg for 10 days for DVT prophylaxis in order to prevent risk of DVT and PE.
Problem #2: Acute anemia---hemoglobin on discharge was 9.7. Patient has no palpitations, fatigue, lightheadedness, tachycardia. Suspect this is due to pneumonia from long bone fracture and intravenous fluid dilution from surgery. Follow-up CBC in
1 week with PCP.
Problem #3: Dementia with agitation---had an episode of agitation 10/31/24 where patient was climbing out of bed and verbally abusing staff. Ordered Soo chair, ordered 0.25 Ativan. On discharge patient is awake alert and oriented, pleasant to
converse with and had no overnight dementia related agitation events.
Problem 4: Hypotension---patient had an episode of hypotension on 11/01/2024 or her blood pressure was 88/56. No dizziness, lightheadedness, fatigue, syncope. Suspect that it is due to being n.p.o. in preparation for surgery. She was given an
increased rate of IV fluids normal saline. On discharge blood pressure is 117/61 and well-controlled.
Problem #5: Depression/anxiety---continue at home medications of mirtazapine, melatonin, quetiapine, risperidone, sertraline.
Problem #6: GERD---continue pantoprazole on discharge
Problem #7: Vitamin B12 deficiency---continue vitamin B12 on discharge
Important imaging findings :
Humerus x-ray/-
IMPRESSION:
Fluoroscopy provided and static images obtained for procedure guidance.
Procedure findings :
Operative report of open reduction internal fixation right humeral shaft fracture:
Open reduction, internal fixation of periprosthetic
humeral shaft fracture with 22 modifier (approximately two times
longer than standard duration for non periprosthetic fracture).
COMPLICATIONS: None.
CONDITION: Stable.
POSTOPERATIVE INSTRUCTIONS:
1. Nonweightbearing, right upper extremity.
2. Pain control.
3. Encourage gentle digital range of motion and elbow range of
motion.
4. Follow up in 10-14 days for clinical examination and suture
removal.
Discharge Plan
-
Patient Disposition: Group Home/SNF
Discharge Diagnosis/Procedures: Mechanical fall, Hyperlipidemia, dementia with agitation, anxiety, depression, GERD, osteoarthritis, Vitamin b12 deficiency
Condition: Fair
Diet: Low Cholesterol
Activity: Other activity
Additional Activity: non-weight bearing to right upper extremity
Driving Restrictions: Not until seen by your Dr
Bathing Restrictions: OK to Shower
Blood Work: CBC in 1 week with PCP
Activity Restrictions/Additional Instructions:
Follow up orthopedics outpatient in 2 weeks
Referrals:
Mariaa Amaya CRNP [Family Provider] - in less than 1 week
Colin Garcia MD [Active] - in two weeks (follow-up 2 weeks from date of surgery (15 Nov 2024 @ 1:30 pm))
Additional Discharge Medication Instructions: Added Enoxaparin (Lovenox) 30 mg to be subcutaneous for 10 days
Prescriptions:
New
enoxaparin 30 mg/0.3 mL Syringe
30 mg SC QPM Qty: 0 0RF
Continued
quetiapine 25 mg Tablet
25 mg PO 1400
atorvastatin 20 mg Tablet
20 mg PO HS
risperidone 0.25 mg Tablet
0.25 mg PO BID
pantoprazole [Protonix] 40 mg Tablet,Delayed Release (Dr/Ec)
40 mg PO DAILY
sertraline 25 mg Tablet
25 mg PO DAILY
mirtazapine 15 mg Tablet
15 mg PO HS
melatonin 5 mg Tablet
5 mg PO HS
Caltrate 600 plus D 600 mg-20 mcg (800 unit) Tablet,Chewable
1 tab PO BID
cyanocobalamin (vitamin B-12) 1,000 mcg Capsule
1,000 mcg PO DAILY
Discharge Orders:
Discharge Patient (As Directed); Ordered 11/03/24
Ordered By: Luc Velasquez
Discharge Date and Time
Discharge Date/Time: 11/03/24 15:45
Print Language: MACEDONIAN
== END 2024-11-03 15:45 | DRG 493 ==
LOC: 2 SOUTH 21:39
PROVIDERS: Nurse Practitioner Family; Student in an Organized Health Care Education/Training Program; ADMITTING PHYSICIAN Hospitalist; ATTENDING PHYSICIAN Internal Medicine; EMERGENCY PHYSICIAN Emergency Medicine; FAMILY PHYSICIAN Nurse Practitioner Family; OTHER PHYSICIAN Orthopaedic Surgery Hand Surgery
PROC: 0PSF04Z Reposition Right Humeral Shaft with Internal Fixation Device, Open Approach (ICD-10-PCS; 2024-11-01)
DX: M97.31XA Periprosthetic fracture around internal prosthetic right shoulder joint, initial encounter (principal); D62 Acute posthemorrhagic anemia; F03.911 Unspecified dementia, unspecified severity, with agitation; S42.301A Unspecified fracture of shaft of humerus, right arm, initial encounter for closed fracture; F03.918 Unspecified dementia, unspecified severity, with other behavioral disturbance; F03.93 Unspecified dementia, unspecified severity, with mood disturbance; F03.94 Unspecified dementia, unspecified severity, with anxiety; Z87.891 Personal history of nicotine dependence; Z66 Do not resuscitate; W01.0XXA Fall on same level from slipping, tripping and stumbling without subsequent striking against object, initial encounter; E78.5 Hyperlipidemia, unspecified; K21.9 Gastro-esophageal reflux disease without esophagitis; M19.90 Unspecified osteoarthritis, unspecified site; E53.8 Deficiency of other specified B group vitamins; I95.9 Hypotension, unspecified; F32.A Depression, unspecified; Z96.643 Presence of artificial hip joint, bilateral
CPT/HCPCS: 24505; 73030; 73060; 76000; 80048; 85025; 85027; 86850; 86900; 86901; 96374; 96375; 96376; 97116; 97162; 97166; 97530; 99285; C1713